=== PATIENT | male | born 1955 | race Hispanic/Latino ===

== ENCOUNTER 2018-07-09 11:38 | Emergency (ER) | payer OTHER ==
--- NOTE | 2018-07-09 14:33 | ER ---
Nurse's Notes [facility] Name: Jose Xie Age: 63 yrs Sex: Male : 1955 Arrival Date: 07/09/2018 Time: 11:39 Bed Waiting Private MD: Diagnosis: Presentation: 07/09 11:46 Presenting complaint: Patient states: cough, nasal congestion that began 5-6 days ago. aa5 Pt states "I think it's my sinuses". Pt also c/o sore throat and body aches. Pt states "I've been taking penicillin for the last 5 days and not working". Transition of care: patient was not received from another setting of care. Onset of symptoms was June 2018. Risk Assessment: Do you want to hurt yourself or someone else? Patient reports no desire to harm self or others. Care prior to arrival: None. 11:46 Method Of Arrival: Wheelchair aa5 11:46 Acuity: CY 3 aa5 13:13 Note Pt states "I just took some tramadol a little bit ago but my eyes hurt and are aa5 burning". Historical: - Allergies: 11:47 INFLUENZA VIRUS VACCINES; aa5 - PMHx: 11:47 Diabetes - NIDDM; Hyperlipidemia; Hypertension; Rheumatoid Arthritis; aa5 - PSHx: 11:47 back surgery; right wrist surgery; left foot surgery; aa5 - Immunization history:: Flu vaccine is not up to date. - Social history:: Smoking status: Patient uses tobacco products, denies chronic smoking, but will smoke occasionally. - Ebola Screening: : No symptoms or risks identified at this time. Assessment: 13:15 Reassessment: Patient is alert, oriented x 3, equal unlabored respirations, skin aa5 warm/dry/pink. Pt updated on wait time for ER room assignment, pt verbalized understanding. . Vital Signs: 11:47 BP 149 / 79; Pulse 95; Resp 20 S; Temp 100.0(O); Pulse Ox 96% on R/A; Weight 113.4 kg aa5 (R); Height 5 ft. 9 in. (175.26 cm) (R); Pain 10/10; 13:15 BP 157 / 86; Pulse 88; Resp 18 S; Temp 99.1(O); Pulse Ox 97% on R/A; aa5 11:47 Body Mass Index 36.92 (113.40 kg, 175.26 cm) aa5 ED Course: 11:39 Patient arrived in ED. as 11:46 Arm band placed on. aa5 11:47 Triage completed. aa5 13:52 Patient's name was called from ER lobby. No response. ss 13:53 [facility] Gay[facility]C [facility]. kb 13:53 Jeremie Bravo MD is Attending Physician. kb 14:05 Patient's name was called from ER lobby. No response. aa5 14:30 Patient's name was called from ER lobby. No response. aa5 14:32 Kojo Machado MD is Attending Physician. aa5 Administered Medications: No medications were administered Outcome: 14:30 Patient left the ED. aa5 14:30 Eloped from waiting room. aa5 Signatures: Eliana Gayle FNP-C FNP-Ame Parker Audri, RN RN aa5 Jade Esquivel RN RN ss Corrections: (The following items were deleted from the chart) 11:49 11:46 Presenting complaint: Patient states: cough, nasal congestion that began 5-6 days aa5 ago. Pt states "I think it's my sinuses" aa5 13:16 13:15 Pulse 88bpm; Resp 18bpm; Spontaneous; Pulse Ox 97% RA; Temp 99.1F Oral; aa5 aa5 14:33 14:32 Patient left the ED. aa5 aa5
== END 2018-07-09 14:32 | disposition left against medical advice (07) ==
LOC: ER 11:38
DX: Z53.21 Procedure and treatment not carried out due to patient leaving prior to being seen by health care provider (principal); I10 Essential (primary) hypertension; Z72.0 Tobacco use; Z88.7 Allergy status to serum and vaccine

== ENCOUNTER 2018-07-10 04:47 | Emergency (ER) | payer OTHER ==
[2018-07-10] MEDS ORDERED: IBUPROFEN 400 MG TAB ONE (06:22)
[2018-07-10] MEDS ORDERED: HYDROCODONE/CHLORPHEN 5 ML/OSYR ONE (06:22)
--- NOTE | 2018-07-10 07:36 | ER ---
Nurse's Notes [facility] Name: Jose Xie Age: 63 yrs Sex: Male : 1955 Arrival Date: 07/10/2018 Time: 04:52 Bed 19 Private MD: Kike Miranda E Diagnosis: Pneumonia, unspecified organism Presentation: 07/10 05:01 Presenting complaint: Patient states: he has been really sick for 5 days with a cough, bb runny nose, stuffy nose, headache, fever, back and muscle pain. He tried some left over penicillin for 2 days but it did not help. Transition of care: patient was not received from another setting of care. Onset of symptoms was July 05, 2018. Risk Assessment: Do you want to hurt yourself or someone else? Patient reports no desire to harm self or others. Initial Sepsis Screen: Does the patient meet any 2 criteria? No. Patient's initial sepsis screen is negative. Does the patient have a suspected source of infection? No. Patient's initial sepsis screen is negative. Care prior to arrival: None. 05:01 Method Of Arrival: Ambulatory bb 05:01 Acuity: CY 3 bb Triage Assessment: 05:08 General: Appears in no apparent distress. uncomfortable, Behavior is calm, cooperative, cc3 appropriate for age. Pain: Complains of pain in headache, back Quality of pain is described as aching. EENT: Reports nasal congestion since 5 days flu-like symptoms. Neuro: Level of Consciousness is awake, alert, obeys commands, Oriented to person, place, time, situation, Appropriate for age. Cardiovascular: Patient's skin is warm and dry. Respiratory: Airway is patent Respiratory effort is even, unlabored, Respiratory pattern is regular, symmetrical. GI: Abdomen is round obese. : No signs and/or symptoms were reported regarding the genitourinary system. Derm: No signs and/or symptoms reported regarding the dermatologic system. Musculoskeletal: Circulation, motion, and sensation intact. Range of motion: intact in all extremities. Historical: - Allergies: 05:14 INFLUENZA VIRUS VACCINES; bb - Home Meds: 05:14 unable to obtain [Active]; bb - PMHx: 05:14 Diabetes - NIDDM; Hyperlipidemia; Hypertension; Rheumatoid Arthritis; bb - PSHx: 05:14 back surgery; right wrist surgery; left foot surgery; bb - Immunization history:: Adult Immunizations unknown. - Social history:: Smoking status: Patient uses tobacco products, denies chronic smoking, but will smoke occasionally, Patient uses alcohol, occasionally. Patient/guardian denies using street drugs. - Ebola Screening: : No symptoms or risks identified at this time No symptoms or risks identified at this time. Screenin:08 Abuse screen: Denies threats or abuse. Denies injuries from another. Nutritional cc3 screening: No deficits noted. Tuberculosis screening: No symptoms or risk factors identified. Fall Risk Ambulatory Aid- Crutches/Cane/Walker (15 pts). Gait- Weak (10 pts.). Mental Status- Oriented to own ability (0 pts). Assessment: 05:20 Reassessment: Patient appears in no apparent distress at this time. Patient and/or cc3 family updated on plan of care and expected duration. Pain level reassessed. Patient is alert, oriented x 3, equal unlabored respirations, skin warm/dry/pink. Patient in a hurry to see a physician, Dr. Francisco informed. 06:00 Reassessment: Patient appears in no apparent distress at this time. Patient and/or cc3 family updated on plan of care and expected duration. Pain level reassessed. Patient is alert, oriented x 3, equal unlabored respirations, skin warm/dry/pink. still hasn't signed up for the patient, patient seen by LOUANN Diaz. 06:50 Reassessment: Patient appears in no apparent distress at this time. Patient and/or cc3 family updated on plan of care and expected duration. Pain level reassessed. Patient is alert, oriented x 3, equal unlabored respirations, skin warm/dry/pink. Patient taken by echo technician to xray department. 07:00 Reassessment: RECD REPORT FROM ELDA CARDENAS. 63YO HM P/W FLU-LIKE S/S. ALL CURRENT bp ORDERS COMPLETED, RESULTS PENDING. 07:35 Reassessment: D/C ON HOLD FOR SHOT TIME. bp 07:56 Reassessment: PT D/C HOME AMBULATORY WITH FAMILY, DX WITH PNEUMONIA. bp Vital Signs: 05:14 BP 177 / 83; Pulse 87; Resp 18 S; Temp 98.4(O); Pulse Ox 98% on R/A; Weight 113.4 kg bb (R); Height 5 ft. 9 in. (175.26 cm) (R); Pain 9/10; 06:19 BP 139 / 83; Pulse 74; Resp 19 S; Pulse Ox 96% on R/A; cc3 07:45 BP 123 / 59; Pulse 70; Resp 18; Pulse Ox 96% ; mh5 05:14 Body Mass Index 36.92 (113.40 kg, 175.26 cm) ED Course: 04:52 Patient arrived in ED. es 04:53 Kike Miranda MD is Private Physician. es 05:03 Triage completed. bb 05:08 Elda Dexter is Primary Nurse. cc3 05:08 Arm band placed on right wrist. Patient notified of wait time. cc3 05:08 Patient has correct armband on for positive identification. Bed in low position. Call cc3 light in reach. Side rails up X 1. Pulse ox on. NIBP on. 06:01 Emily De La Cruz FNP-C is PSYCHIATRICP. snw 06:01 Jovan Francisco MD is Attending Physician. snw 07:00 Patient moved to radiology via wheelchair. jb2 07:00 Report given to RONALD Franco. cc3 07:04 X-ray completed. Patient tolerated procedure well. jb2 07:06 Patient moved back from radiology. jb2 07:08 Chest Pa And Lat (2 Views) XRAY In Process Unspecified. EDMS 07:08 Salvador Dominguez RN is Primary Nurse. bp 07:34 Kike Miranda MD is Referral Physician. snw 07:56 No provider procedures requiring assistance completed. Patient did not have IV access bp during this emergency room visit. Administered Medications: 06:12 Drug: Tussionex Pennkinetic ER 5 ml Route: PO; lp1 07:10 Follow up: Response: Marked relief of symptoms bp 06:12 Drug: Motrin 400 mg Route: PO; lp1 07:10 Follow up: Response: No adverse reaction bp 07:35 Drug: Rocephin (cefTRIAXone) 1 grams Route: IM; Site: left gluteus; bp 07:57 Follow up: Response: No adverse reaction bp Outcome: 07:35 Discharge ordered by . snw 07:56 Discharged to home ambulatory, with family. bp 07:56 Condition: stable 07:56 Discharge instructions given to patient, Instructed on discharge instructions, follow up and referral plans. medication usage, Demonstrated understanding of instructions, follow-up care, medications, Prescriptions given X 4. 07:58 Patient left the ED. bp Signatures: Dispatcher [employer] EDMS Emily De La Cruz, RENITA-C [employer]-Csnw Oliva Curtis Jesse jb2 Chuyita Grimm, RN RN bb Ariane Terry, RONALD RN 1 Julienne Ervin [facility] Salvador Dominguez RN RN bp Elda Dexter cc3 Corrections: (The following items were deleted from the chart) 06:21 05:30 Reassessment: Patient appears in no apparent distress at this time. Patient cc3 and/or family updated on plan of care and expected duration. Pain level reassessed. Patient is alert, oriented x 3, equal unlabored respirations, skin warm/dry/pink. Patient in a hurry to see a physician, Dr. Francisco informed. cc3 06:22 06:00 Reassessment: Patient appears in no apparent distress at this time. Patient cc3 and/or family updated on plan of care and expected duration. Pain level reassessed. Patient is alert, oriented x 3, equal unlabored respirations, skin warm/dry/pink. Patient seen by LOUANN Diaz. cc3
--- NOTE | 2018-07-10 07:36 | EDPHYS ---
Physician Documentation [facility] Name: Jose Xie Age: 63 yrs Sex: Male : 1955 Arrival Date: 07/10/2018 Time: 04:52 Bed 19 Private MD: Kike Miranda E ED Physician Jovan Francisco HPI: 07/10 07:33 This 63 yrs old Male presents to ER via Ambulatory with complaints of Flu snw Symptoms, Congestion, Fever, Headache. 07:33 Onset: The symptoms/episode began/occurred 5 day(s) ago, and became persistent. snw Associated signs and symptoms: Pertinent positives: congestion, cough, diarrhea, fever, shortness of breath, sore throat, vomiting. The patient has experienced a previous episode. The patient has not recently seen a physician. Historical: - Allergies: 05:14 INFLUENZA VIRUS VACCINES; bb - Home Meds: 05:14 unable to obtain [Active]; bb - PMHx: 05:14 Diabetes - NIDDM; Hyperlipidemia; Hypertension; Rheumatoid Arthritis; bb - PSHx: 05:14 back surgery; right wrist surgery; left foot surgery; bb - Immunization history:: Adult Immunizations unknown. - Social history:: Smoking status: Patient uses tobacco products, denies chronic smoking, but will smoke occasionally, Patient uses alcohol, occasionally. Patient/guardian denies using street drugs. - Ebola Screening: : No symptoms or risks identified at this time No symptoms or risks identified at this time. ROS: 06:25 Constitutional: Positive for fever, chills, no weight loss, Eyes: Negative for injury, snw pain, redness, and discharge, ENT: Negative for injury, pain, and discharge, Neck: Negative for injury, pain, and swelling, Cardiovascular: Negative for chest pain, palpitations, and edema, Abdomen/GI: Positive for nausea, vomiting, diarrhea, negative for abdominal pain Back: Negative for injury and pain, : Negative for injury, bleeding, discharge, and swelling, MS/Extremity: Negative for injury and deformity, + pain all over Skin: Negative for injury, rash, and discoloration, Neuro: Negative for headache, weakness, numbness, tingling, and seizure. 06:25 Respiratory: Positive for cough, orthopnea. Exam: 06:23 Head/Face: Normocephalic, atraumatic. Eyes: Pupils equal round and reactive to light, snw extra-ocular motions intact. Lids and lashes normal. Conjunctiva and sclera are non-icteric and not injected. Cornea within normal limits. Periorbital areas with no swelling, redness, or edema. 06:23 Neck: Trachea midline, no thyromegaly or masses palpated, and no cervical lymphadenopathy. Supple, full range of motion without nuchal rigidity, or vertebral point tenderness. No Meningismus. Chest/axilla: Normal chest wall appearance and motion. Nontender with no deformity. No lesions are appreciated. 06:23 Abdomen/GI: Soft, non-tender, with normal bowel sounds. No distension or tympany. No guarding or rebound. No evidence of tenderness throughout. Back: No spinal tenderness. No costovertebral tenderness. Full range of motion. Skin: Warm, dry with normal turgor. Normal color with no rashes, no lesions, and no evidence of cellulitis. MS/ Extremity: Pulses equal, no cyanosis. Neurovascular intact. Full, normal range of motion. Neuro: Awake and alert, GCS 15, oriented to person, place, time, and situation. Cranial nerves II-XII grossly intact. Motor strength 5/5 in all extremities. Sensory grossly intact. Cerebellar exam normal. Normal gait. 06:23 Constitutional: The patient appears alert, awake, anxious, restless, uncomfortable. 06:23 ENT: External ear(s): are unremarkable, Ear canal(s): are normal, TM's: are normal, Nose: Nasal mucosa: edematous, Mouth: is normal, Posterior pharynx: swelling, that is mild, erythema, that is mild, Dental exam: normal, Voice: is hoarse. 06:23 Cardiovascular: Rate: normal, Rhythm: regular, Pulses: no pulse deficits are appreciated, Heart sounds: murmur, Edema: is not appreciated. 06:23 Respiratory: the patient does not display signs of respiratory distress, Respirations: shallow respirations, Breath sounds: bronchial sounds, bronchitic cough. Vital Signs: 05:14 BP 177 / 83; Pulse 87; Resp 18 S; Temp 98.4(O); Pulse Ox 98% on R/A; Weight 113.4 kg bb (R); Height 5 ft. 9 in. (175.26 cm) (R); Pain 9/10; 06:19 BP 139 / 83; Pulse 74; Resp 19 S; Pulse Ox 96% on R/A; cc3 07:45 BP 123 / 59; Pulse 70; Resp 18; Pulse Ox 96% ; mh5 05:14 Body Mass Index 36.92 (113.40 kg, 175.26 cm) bb MDM: 06:04 Patient medically screened. snw 07:58 Data reviewed: vital signs, nurses notes. Data interpreted: Pulse oximetry: on room air snw is 96 %. Interpretation: acceptable. Counseling: I had a detailed discussion with the patient and/or guardian regarding: the historical points, exam findings, and any diagnostic results supporting the discharge/admit diagnosis, lab results, radiology results, the need for outpatient follow up, for definitive care, to return to the emergency department if symptoms worsen or persist or if there are any questions or concerns that arise at home. Response to treatment: the patient's symptoms have markedly improved after treatment. Special discussion: Based on the history and exam findings, there is no indication for further emergent testing or inpatient evaluation. I discussed with the patient/guardian the need to see the primary care provider for further evaluation of the symptoms. 07/10 05:28 Order name: Flu; Complete Time: 06:22 cc3 07/10 06:02 Order name: Chest Pa And Lat (2 Views) XRAY snw Administered Medications: 06:12 Drug: Tussionex Pennkinetic ER 5 ml Route: PO; lp1 07:10 Follow up: Response: Marked relief of symptoms bp 06:12 Drug: Motrin 400 mg Route: PO; lp1 07:10 Follow up: Response: No adverse reaction bp 07:35 Drug: Rocephin (cefTRIAXone) 1 grams Route: IM; Site: left gluteus; bp 07:57 Follow up: Response: No adverse reaction bp Disposition: 07/10/18 07:35 Discharged to Home. Impression: Pneumonia, unspecified organism. - Condition is Stable. - Discharge Instructions: Fever, Adult, Community-Acquired Pneumonia, Adult. - Prescriptions for Levaquin 500 mg Oral Tablet - take 1 tablet by ORAL route once daily for 10 days; 10 tablet. Tylenol- Codeine #3 300-30 mg Oral Tablet - take 2 tablets by ORAL route every 6 hours As needed; 16 tablet. Albuterol Sulfate 90 mcg/actuation - inhale 1-2 puff by INHALATION route every 4-6 hours; 1 Inhaler. Zyrtec 10 mg Oral Tablet - take 1 tablet by ORAL route once daily As needed; 20 tablet. - Medication Reconciliation Form, Thank You Letter, Antibiotic Education, Prescription Opioid Use form. - Follow up: Kike Miranda MD; When: 2 - 3 days; Reason: Recheck today's complaints, Continuance of care, Re-evaluation by your physician. Follow up: Emergency Department; When: As needed; Reason: Worsening of condition. Signatures: Dispatcher [employer] EDMS Emily De La Cruz, PRETZEL PACKER-C PRETZ[employer] PACKER-Csnw Chuyita Grimm, RN RN bb Ariane Terry, RN RN lp1 Salvador Dominguez RN RN bp Elda Dexter cc3 Corrections: (The following items were deleted from the chart) 07:58 07:35 07/10/2018 07:35 Discharged to Home. Impression: Pneumonia, unspecified organism. bp Condition is Stable. Forms are Medication Reconciliation Form, Thank You Letter, Antibiotic Education, Prescription Opioid Use. Follow up: Kike Miranda; When: 2 - 3 days; Reason: Recheck today's complaints, Continuance of care, Re-evaluation by your physician. Follow up: Emergency Department; When: As needed; Reason: Worsening of condition. snw
[2018-07-10] MEDS ORDERED: CEFTRIAXONE 1000 MG/VIAL ONE (07:58)
[2018-07-10] MEDS ORDERED: LIDOCAINE 2% MPF 5 ML VIAL ONE (07:59)
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
== END 2018-07-10 07:58 | disposition home or self-care (01) ==
LOC: ER 04:47
DX: J18.9 Pneumonia, unspecified organism (principal); I10 Essential (primary) hypertension; Z72.0 Tobacco use; Z88.7 Allergy status to serum and vaccine
CPT/HCPCS: 71046; 87804; 96372; 99284

== ENCOUNTER 2021-02-16 06:28 | Emergency (ER) | payer OTHER ==
[2021-02-16 07:14] LABS: Absolute Lymphocytes (CBC) 2.5 K/uL (0.7-4.9); Basophils % 0.9 % (0-1.3); Lymphocytes % 22.1 % (15.3-44.8); RBC Red Blood Cell Count 4.84 M/uL (4.33-5.43)
[2021-02-16] MEDS ORDERED: ONDANSETRON 4 MG/2 ML VIAL ONE (07:16)
[2021-02-16] MEDS ORDERED: MORPHINE 4 MG/ML SYR ONE (07:17)
[2021-02-16] MEDS ORDERED: FAMOTIDINE 20 MG/2 ML VIAL IV ONE (07:25)
[2021-02-16 07:31] LABS: Albumin 3.4 g/dL (3.4-5.0); Bilirubin Direct 0.1 mg/dL (0-0.2); Bilirubin Total 0.4 mg/dL (0.2-1.0); Potassium 3.9 mmol/L (3.5-5.1); Protein, Total 7.7 g/dL (6.4-8.2)
[2021-02-16] MEDS ORDERED: NA CHLORIDE 0.9% 1,000 ML ONE (07:44)
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
[2021-02-16] MEDS ORDERED: MAGNES/ALUMIN/SIMET 30ML UCUP ONE (09:23)
[2021-02-16] MEDS ORDERED: LIDOCAINE VISCOUS 2% SOLN 15 ML UDC ONE (09:23)
--- NOTE | 2021-02-16 10:14 | EDPHYS ---
Physician Documentation [facility] Name: Jose Xie Age: 66 yrs Sex: Male : 1955 Arrival Date: 02/16/2021 Time: 06:31 Bed 16 Private MD: ED Physician Antelmo Johnston HPI: 02/16 07:10 This 66 yrs old Male presents to ER via Ambulatory with complaints of jmm Abdominal Pain, Abdominal Burn. 07:10 The patient presents with abdominal pain. Onset: The symptoms/episode began/occurred jmm last night. The symptoms do not radiate. Associated signs and symptoms: Pertinent negatives: diarrhea, vomiting. The symptoms are described as achy, burning. The patient has experienced similar episodes in the past. Historical: - PMHx: 07:57 Diabetes mellitus; Hypertensive disorder; Ulcer; jg9 - Immunization history:: Client reports receiving the Moiz \T\ Moiz single-dose vaccine. Pneumococcal vaccine is not up to date, Flu vaccine is not up to date. - Social history:: Smoking status: Patient reports the use of cigarette tobacco products, denies chronic smoking, but will smoke occasionally. ROS: 07:10 Constitutional: Negative for fever, chills, and weight loss, Cardiovascular: Negative jmm for chest pain, palpitations, and edema, Respiratory: Negative for shortness of breath, cough, wheezing, and pleuritic chest pain. 07:10 Abdomen/GI: Positive for abdominal pain. 07:10 All other systems are negative. Exam: 07:10 Constitutional: This is a well developed, well nourished patient who is awake, alert, jmm and in no acute distress. Head/Face: atraumatic. Eyes: EOMI, no conjunctival erythema appreciated ENT: Moist Mucus Membranes Neck: Trachea midline, Supple Chest/axilla: Normal chest wall appearance and motion. Cardiovascular: Regular rate and rhythm. No edema appreciated Respiratory: Normal respirations, no respiratory distress appreciated 07:10 Skin: General appearance color normal MS/ Extremity: Moves all extremities, no obvious deformities appreciated, no edema noted to the lower extremities Neuro: Awake and alert, normal gait Psych: Behavior is normal, Mood is normal, Patient is cooperative and pleasant 07:10 Abdomen/GI: Inspection: abdomen appears normal, Bowel sounds: normal, Palpation: soft, moderate abdominal tenderness, in the epigastric area. Vital Signs: 06:38 BP 155 / 73; Pulse 80; Resp 20; Temp 97.7; Pulse Ox 97% on R/A; Weight 109.77 kg; da3 Height 5 ft. 10 in. (177.80 cm); 07:15 BP 139 / 67; Pulse 47; Resp 18 S; Pulse Ox 95% on R/A; jg9 07:45 BP 142 / 78; Pulse 77; Resp 16; Pulse Ox 96% on R/A; jg9 08:35 BP 158 / 83; Pulse 73; Resp 18 S; Pulse Ox 97% on R/A; jg9 09:30 BP 160 / 78; Pulse 75; Resp 17 S; Pulse Ox 97% on R/A; jg9 06:38 Body Mass Index 34.72 (109.77 kg, 177.80 cm) da3 MDM: 07:04 Patient medically screened. terrell 10:10 Data reviewed: vital signs, nurses notes. Counseling: I had a detailed discussion with terrell the patient and/or guardian regarding: the historical points, exam findings, and any diagnostic results supporting the discharge/admit diagnosis, lab results, the need for outpatient follow up, to return to the emergency department if symptoms worsen or persist or if there are any questions or concerns that arise at home. ED course: Patient is alert nontoxic in appearance in the ED. States feeling much better. CT did not reveal an acute process. Most likely gastritis based on physical exam findings. Patient will be prescribed suckle fate and advised follow-up gastroenterology. Patient otherwise given strict return precautions. Patient understood and agrees plan of care.. 12 07:05 Order name: Basic Metabolic Panel; Complete Time: 07:32 [facility] 12 07:05 Order name: CBC with Diff; Complete Time: 07:18 [facility] 12 07:05 Order name: Hepatic Function; Complete Time: 07:32 [facility] 12 07:05 Order name: Lipase; Complete Time: 07:32 [facility] 12 07:05 Order name: CT Abd/Pelvis - IV Contrast Only; Complete Time: 08:24 [facility] 12 07:05 Order name: IV Saline Lock; Complete Time: 07:09 [facility] 12 07:05 Order name: Labs collected and sent; Complete Time: 07:09 [facility] Administered Medications: 07:20 Drug: Zofran (Ondansetron) 4 mg Route: IVP; Site: left antecubital; jg9 07:42 Follow up: Response: No adverse reaction; Nausea is decreased jg9 07:23 Drug: morphine 4 mg Route: IVP; Site: left antecubital; jg9 07:42 Follow up: Response: No adverse reaction; Pain is decreased jg9 08:00 Follow up: Response: Pain is decreased; RASS: Alert and Calm (0) jg9 07:26 Drug: Pepcid (famotidine) 20 mg Route: IVP; Site: left antecubital; jg9 07:42 Follow up: Response: No adverse reaction; Pain is decreased jg9 08:00 Follow up: Response: No adverse reaction; Marked relief of symptoms jg9 07:50 Drug: NS 0.9% 1000 ml Route: IV; Rate: 1 bolus; Site: left antecubital; jg9 09:27 Follow up: IV Status: Completed infusion; IV Intake: 1000ml j9 09:27 Drug: GI Cocktail without - (Maalox Suspension 30 ml, Lidocaine Liquid 2 % 15 jg9 ml) Route: PO; 09:45 Follow up: Response: Pain is decreased jg9 Disposition Summary: 02/16/21 10:13 Discharge Ordered Location: Home [facility] Condition: Stable [facility] Diagnosis - Abdominal pain, unspecified [facility] Followup: [facility] - With: Kike Perez MD - When: 2 - 3 days - Reason: Recheck today's complaints, Continuance of care, Re-evaluation by your physician Discharge Instructions: - Discharge Summary Sheet [facility] - Abdominal Pain, Adult [facility] Forms: - Medication Reconciliation Form [facility] - Thank You Letter [facility] - Antibiotic Education [facility] - Prescription Opioid Use [facility] Prescriptions: - Carafate 100 mg/mL Oral suspension - take 10 milliliter by ORAL route 4 times per day; 200 milliliter; Refills: 0, [facility] Product Selection Permitted Signatures: Dispatcher [employer] EDHay Doan PA PA jmm Allan, David RN RN da3 Yasemin Bose jg9 Corrections: (The following items were deleted from the chart) 06:43 06:42 PMHx: Diabetes - NIDDM; da3 da3 06:43 06:42 PMHx: Hypertension; da3 da3 06:43 06:42 PMHx: Hyperlipidemia; da3 da3 06:43 06:42 PMHx: Rheumatoid Arthritis; da3 da3 10:20 07:05 Urine Dipstick-Ancillary ordered. terrell jg9
--- NOTE | 2021-02-16 10:14 | ER ---
Nurse's Notes [facility] Name: Jose Xie Age: 66 yrs Sex: Male : 1955 Arrival Date: 02/16/2021 Time: 06:31 Bed 16 Private MD: Diagnosis: Abdominal pain, unspecified Presentation: 02/16 06:38 Chief complaint: Patient states: abd pain since Monday denies N/V/D. Coronavirus da3 screen: Vaccine status: Patient reports receiving the 1st dose of the Covid vaccine. Ebola Screen: No symptoms or risks identified at this time. Initial Sepsis Screen: Does the patient meet any 2 criteria? Does the patient have a suspected source of infection? No. Patient's initial sepsis screen is negative. Risk Assessment: Do you want to hurt yourself or someone else? Patient reports no desire to harm self or others. 06:38 Method Of Arrival: Ambulatory da3 06:38 Acuity: CY 3 da3 07:15 Onset of symptoms was February 06, 2021. jg9 Triage Assessment: 06:43 General: Appears in no apparent distress. uncomfortable, Behavior is calm, cooperative, da3 appropriate for age. 06:43 Pain: Complains of pain in center of 4 quads since monday Pain currently is 10 out of da3 10 on a pain scale. Historical: - PMHx: 07:57 Diabetes mellitus; Hypertensive disorder; Ulcer; jg9 - Immunization history:: Client reports receiving the Moiz \\T\\ Moiz single-dose vaccine. Pneumococcal vaccine is not up to date, Flu vaccine is not up to date. - Social history:: Smoking status: Patient reports the use of cigarette tobacco products, denies chronic smoking, but will smoke occasionally. Screenin:15 Abuse screen: Denies threats or abuse. Nutritional screening: No deficits noted. jg9 Tuberculosis screening: No symptoms or risk factors identified. Fall Risk None identified. Assessment: 07:10 General: Appears uncomfortable, Behavior is calm, cooperative, appropriate for age. jg9 Pain: Complains of pain in abdomen Pain does not radiate. Pain currently is 10 out of 10 on a pain scale. Quality of pain is described as burning, aching, Pain began 2-3 days ago. Is continuous, Alleviated by medications, rest, Aggravated by increased activity, Noted to be grimacing, Also complains of nausea, Current management Goal of pain control is to. Neuro: Reports. Neuro: No deficits noted. Cardiovascular: No deficits noted. Rhythm is sinus bradycardia. Respiratory: No deficits noted. GI: Bowel sounds present X 4 quads. Abd is soft Abdomen is tender to palpation Guarding noted Reports upper abdominal pain, nausea, normal bowel habits, Patient currently denies Parent/caregiver reports the patient having Patient reports that he drank Tequila on 02/06/21 and since has been experiencing abdominal pain. Patient has been treating with "milk" and "orange juice" which he reports did help. Patient reports hx of ulcers. 07:57 Reassessment: Patient states feeling better. Patient states symptoms have improved. jg9 08:15 Reassessment: Patient and/or family updated on plan of care and expected duration. Pain jg9 level reassessed. Patient advised that a urine sample is ordered, he reported that he does not have to go right now. 09:15 Pain: Complains of pain in abdomen. jg9 09:55 Reassessment: Patient feeling better and wants to leave, patient refusing to provide jg9 urine specimen. Vital Signs: 06:38 BP 155 / 73; Pulse 80; Resp 20; Temp 97.7; Pulse Ox 97% on R/A; Weight 109.77 kg; da3 Height 5 ft. 10 in. (177.80 cm); 07:15 BP 139 / 67; Pulse 47; Resp 18 S; Pulse Ox 95% on R/A; jg9 07:45 BP 142 / 78; Pulse 77; Resp 16; Pulse Ox 96% on R/A; jg9 08:35 BP 158 / 83; Pulse 73; Resp 18 S; Pulse Ox 97% on R/A; jg9 09:30 BP 160 / 78; Pulse 75; Resp 17 S; Pulse Ox 97% on R/A; jg9 06:38 Body Mass Index 34.72 (109.77 kg, 177.80 cm) da3 ED Course: 06:31 Patient arrived in ED. bp1 06:42 Triage completed. 3 06:50 Hay Mosqueda PA is PHCP. [facility] 06:50 Antelmo Johnston MD is Attending Physician. [facility] 07:03 Inserted saline lock: 18 gauge in left antecubital area, using aseptic technique. Blood ds4 collected. 07:15 Arm band placed on right wrist. jg9 07:15 Patient has correct armband on for positive identification. Bed in low position. Call jg9 light in reach. 07:53 No apparent distress. Patient eating orange, this nurse advised that he does not eat or jg9 drink anything else until all testing is completed. Awaiting lab results. Pt visited by . 08:06 CT Abd/Pelvis - IV Contrast Only In Process Unspecified. EDMS 09:15 Patient requests pain medication. jg9 09:19 Yasemin Bose is Primary Nurse. jg9 10:13 Kike Perez MD is Referral Physician. m 10:20 No provider procedures requiring assistance completed. jg9 10:20 IV discontinued. jg9 Administered Medications: 07:20 Drug: Zofran (Ondansetron) 4 mg Route: IVP; Site: left antecubital; jg9 07:42 Follow up: Response: No adverse reaction; Nausea is decreased jg9 07:23 Drug: morphine 4 mg Route: IVP; Site: left antecubital; jg9 07:42 Follow up: Response: No adverse reaction; Pain is decreased jg9 08:00 Follow up: Response: Pain is decreased; RASS: Alert and Calm (0) jg9 07:26 Drug: Pepcid (famotidine) 20 mg Route: IVP; Site: left antecubital; jg9 07:42 Follow up: Response: No adverse reaction; Pain is decreased jg9 08:00 Follow up: Response: No adverse reaction; Marked relief of symptoms jg9 07:50 Drug: NS 0.9% 1000 ml Route: IV; Rate: 1 bolus; Site: left antecubital; jg9 09:27 Follow up: IV Status: Completed infusion; IV Intake: 1000ml jg9 09:27 Drug: GI Cocktail without - (Maalox Suspension 30 ml, Lidocaine Liquid 2 % 15 jg9 ml) Route: PO; 09:45 Follow up: Response: Pain is decreased jg9 Intake: 09:27 IV: 1000ml; Total: 1000ml. jg9 Outcome: 10:13 Discharge ordered by . jmm 10:20 Discharged to home ambulatory, with significant other. jg9 10:20 Condition: stable 10:20 Discharge instructions given to patient, Instructed on discharge instructions, follow up and referral plans. Demonstrated understanding of instructions, follow-up care, medications, Prescriptions given X 1. 10:21 Patient left the ED. jg9 Signatures: Dispatcher [employer] EDMS Hay Mosqueda PA PA jmm Swanson, Donovan ds4 Katherine Echeverria David, RN RN da3 Yasemin Bose jg9 Corrections: (The following items were deleted from the chart) 06:43 06:42 PMHx: Diabetes - NIDDM; da3 da3 06:43 06:42 PMHx: Hypertension; da3 da3 06:43 06:42 PMHx: Hyperlipidemia; da3 da3 06:43 06:42 PMHx: Rheumatoid Arthritis; da3 da3
[2021-02-16 10:28] VITALS: TEMP 97.7
[2021-02-16 10:32] VITALS: O2SAT 97
[2021-02-16 10:34] VITALS: BP 160/78
== END 2021-02-16 10:21 | disposition home or self-care (01) ==
LOC: ER 06:28
DX: R10.13 Epigastric pain (principal); I10 Essential (primary) hypertension; Z72.0 Tobacco use
CPT/HCPCS: 96361; 85025; 80048; 36415; 80076; 83690; 74177; 96375; 96374; 99284; Q9967; J7030; J2405

== ENCOUNTER 2021-06-20 08:14 | Emergency (ER) | payer MEDICARE, OTHER ==
--- OUTSIDE RECORDS SUMMARY | 2021-06-20 08:33 | XMS REPORT | Continuity of Care Document ---
:1955 Author Organization [facility] t Address [address] [place] [address] [place] [id number] Care Team Providers Name Role Phone Unavailable Unavailable Unavailable Payers Payer Name Policy Type Policy Number Effective Date Expiration Date S kristy [facility] [id number] 2021 (MEDICARE 00:00:00 REPLACEMENT HMO) Problems This patient has no known problems. Allergies, Adverse Reactions, Alerts This patient has no known allergies or adverse reactions. Medications This patient has no known medications. Procedures This patient has no known procedures. Encounters Start End Encounter Admission Attending Care Care Encounter Source Date/Time Date/Time Type Type Clinicians Facility Department ID 2021-04-13 2021-04-13 Outpatient [facility] [id number] [facility] 12:01:00 12:01:00 [facility] Results This patient has no known results.
[2021-06-20] MEDS ORDERED: HYDROCODONE/CHLORPHEN 5 ML/OSYR ONE (09:09)
[2021-06-20] MEDS ORDERED: IBUPROFEN 400 MG TAB ONE (09:09)
[2021-06-20] MEDS ORDERED: LEVALBUTEROL 1.25 MG/3 ML NEB ONE (09:09)
--- NOTE | 2021-06-20 09:42 | RAD REPORT ---
EXAM DESCRIPTION: RAD - Chest Single View - 06/20/2021 9:10 am CLINICAL HISTORY: cough, sob, chills COMPARISON: Chest Pa And Lat (2 Views) dated 07/10/2018; CHEST PA AND LAT 2 VIEW dated 03/29/2015 FINDINGS: Lines: None. Lungs: Mild ill-defined bilateral airspace disease . Pleural: No significant pleural effusions or pneumothorax. Cardiac: The heart size is within normal limits. Bones: No acute fractures. Other: Shrapnel overlies the left hemithorax. IMPRESSION: Mild ill-defined bilateral opacities could represent a mild multifocal pneumonia.
[2021-06-20 10:22] LABS: SARS-COV-2 RT PCR NEGATIVE (NEGATIVE)
--- NOTE | 2021-06-20 10:35 | ER ---
Nurse's Notes [facility] Name: Jose Xie Age: 66 yrs Sex: Male : 1955 Arrival Date: 06/20/2021 Time: 08:17 Bed 19 Private MD: Diagnosis: Pneumonia Presentation: 06/20 08:33 Chief complaint: Patient states: Cough, sore throat, body aches, fatigue for 2 days. No ll1 fever. Coronavirus screen: Vaccine status: Patient reports receiving the 1st dose of the Covid vaccine. Client denies travel out of the [place] in the last 14 days. congestion, cough unrelated to allergies, difficulty breathing, fatigue, headache, sore throat, Client presents with at least one sign or symptom that may indicate coronavirus-19. Standard/surgical mask placed on the client. Ebola Screen: Patient denies travel to an Ebola-affected area in the 21 days before illness onset. Initial Sepsis Screen: Does the patient meet any 2 criteria? HR > 90 bpm. No. Patient's initial sepsis screen is negative. Does the patient have a suspected source of infection? Yes: Productive cough/pneumonia. Risk Assessment: Do you want to hurt yourself or someone else? Patient reports no desire to harm self or others. Onset of symptoms was June 19, 2021. 08:33 Method Of Arrival: Ambulatory ll1 08:33 Acuity: CY 3 ll1 Triage Assessment: 08:34 General: Appears ill, Behavior is calm, cooperative, appropriate for age, agitated. ll1 Pain: Complains of pain in trunk Quality of pain is described as aching, Aggravated by cough. EENT: Reports nasal congestion. Respiratory: Reports cough that is pain with cough. Historical: - Allergies: 08:32 No Known Allergies; ll1 - PMHx: 08:32 diabetes mellitus; Hypertensive disorder; ULCER; ll1 - PSHx: 08:32 None; ll1 - Immunization history:: Client reports receiving the 1st dose of the Covid vaccine. - Social history:: Smoking status: Patient denies any tobacco usage or history of. Screenin:15 Abuse screen: Denies threats or abuse. Denies injuries from another. Nutritional ww screening: No deficits noted. Tuberculosis screening: No symptoms or risk factors identified. Fall Risk None identified. Assessment: 09:14 General: Appears in no apparent distress. uncomfortable, Behavior is cooperative. Pain: ww Complains of pain in generalized body aches. Neuro: Level of Consciousness is awake, alert, obeys commands, Oriented to person, place, time, situation, Moves all extremities. Speech is normal. Cardiovascular: Patient's skin is warm and dry. Chest pain is denied. Respiratory: Airway is patent Respiratory effort is even, unlabored, Respiratory pattern is regular, symmetrical. GI: No signs and/or symptoms were reported involving the gastrointestinal system. Abdomen is round. EENT: Throat is reddened Reports pain in uvula, left aspect of posterior pharynx and right aspect of posterior pharynx when swallowing. Derm: Skin is intact, Skin is pink, warm \T\ dry. 10:48 Reassessment: Patient appears in no apparent distress at this time. No changes from ww previously documented assessment. Patient and/or family updated on plan of care and expected duration. Pain level reassessed. Patient is alert, oriented x 3, equal unlabored respirations, skin warm/dry/pink. Vital Signs: 08:33 BP 166 / 81; Pulse 97; Resp 18; Temp 98.3; Pulse Ox 99% on R/A; Weight 104.33 kg; ll1 Height 5 ft. 10 in. (177.80 cm); Pain 10/10; 09:15 BP 164 / 73; Pulse 84; Resp 16; Pulse Ox 100% ; ww 08:33 Body Mass Index 33.00 (104.33 kg, 177.80 cm) ll1 ED Course: 08:17 Patient arrived in ED. rg4 08:17 Hay Mosqueda PA is PHCP. jmm 08:17 Du Osborn MD is Attending Physician. jmm 08:26 Arm band placed on Patient placed in an exam room, on a stretcher. ss 08:32 Jessica Chairez, RONALD is Primary Nurse. ww 08:34 Triage completed. ll1 09:12 Chest Single View XRAY In Process Unspecified. EDMS 09:15 Patient has correct armband on for positive identification. Bed in low position. Call ww light in reach. Side rails up X 1. Adult w/ patient. Pulse ox on. NIBP on. 10:49 No provider procedures requiring assistance completed. Patient did not have IV access ww during this emergency room visit. Administered Medications: 09:10 Drug: Tussionex Pennkinetic ER (chlorpheniramine-hydrocodone) Suspension 5 ml Route: PO;ww :14 Drug: Ibuprofen 400 mg Route: PO; ww : Drug: Xopenex (levalbuterol) (3) 1.25 mg Route: Inhalation; ww Outcome: 10:34 Discharge ordered by . terrell :49 Discharged to home ambulatory, with family. ww :49 Condition: stable :49 Discharge instructions given to patient, family, Instructed on discharge instructions, follow up and referral plans. medication usage, safety practices, Demonstrated understanding of instructions, follow-up care, medications, Prescriptions given X 3. : Patient left the ED. ww Signatures: Dispatcher [employer] EDMS Hay Mosqueda PA PA jmm Smirch, Shelby, RN RN Shirley Stafford rg4 Mitali Zimmerman RN RN 1 Jessica Chairez RN RN
--- NOTE | 2021-06-20 10:35 | EDPHYS ---
Physician Documentation [facility] Name: Jose Xie Age: 66 yrs Sex: Male : 1955 Arrival Date: 06/20/2021 Time: 08:17 Bed 19 Private MD: ERROL Physician Du Osborn HPI: 06/20 08:30 This 66 yrs old Male presents to ER via Ambulatory with complaints of Cough, jmm Sore Throat. 08:30 The patient or guardian reports cough. Onset: The symptoms/episode began/occurred jmm gradually. Modifying factors: The symptoms are alleviated by nothing, the symptoms are aggravated by nothing. Associated signs and symptoms: Pertinent positives: sore throat. Historical: - Allergies: 08:32 No Known Allergies; ll1 - PMHx: 08:32 diabetes mellitus; Hypertensive disorder; ULCER; ll1 - PSHx: 08:32 None; ll1 - Immunization history:: Client reports receiving the 1st dose of the Covid vaccine. - Social history:: Smoking status: Patient denies any tobacco usage or history of. ROS: 08:30 Constitutional: Positive for body aches, chills. jmm 08:30 Cardiovascular: Positive for chest pain, with cough. 08:30 Respiratory: Positive for cough. 08:30 All other systems are negative. Exam: 08:30 Constitutional: This is a well developed, well nourished patient who is awake, alert, jmm and in no acute distress. Head/Face: atraumatic. Eyes: EOMI, no conjunctival erythema appreciated ENT: Moist Mucus Membranes Neck: Trachea midline, Supple Chest/axilla: Normal chest wall appearance and motion. Cardiovascular: Regular rate and rhythm. No edema appreciated Respiratory: Normal respirations, no respiratory distress appreciated Abdomen/GI: Non distended, soft Back: Normal ROM Skin: General appearance color normal MS/ Extremity: Moves all extremities, no obvious deformities appreciated, no edema noted to the lower extremities Neuro: Awake and alert Psych: Behavior is normal, Mood is normal, Patient is cooperative and pleasant Vital Signs: 08:33 BP 166 / 81; Pulse 97; Resp 18; Temp 98.3; Pulse Ox 99% on R/A; Weight 104.33 kg; ll1 Height 5 ft. 10 in. (177.80 cm); Pain 10/10; 09:15 BP 164 / 73; Pulse 84; Resp 16; Pulse Ox 100% ; ww 08:33 Body Mass Index 33.00 (104.33 kg, 177.80 cm) ll1 MDM: 08:30 [facility] 10:32 Data reviewed: vital signs, nurses notes. Counseling: I had a detailed discussion with terrell the patient and/or guardian regarding: the historical points, exam findings, and any diagnostic results supporting the discharge/admit diagnosis, lab results, the need for outpatient follow up, to return to the emergency department if symptoms worsen or persist or if there are any questions or concerns that arise at home. ED course: Patient is alert and non toxic in appearance in the ED. No signs of resp distress. Patient treated with oral abx and otherwise given strict return precautions. Patient understood and agrees with the plan of care. . 06/20 08:32 Order name: COVID-19/FLU A+B (Document "Date of Onset" if Symptomatic); Complete Time: [facility] 10:27 06/20 08:34 Order name: Strep; Complete Time: 10:03 [facility] 06/20 08:34 Order name: Chest Single View XRAY; Complete Time: 09:45 [facility] 06/20 10:06 Order name: Throat Culture EDMS Administered Medications: 09:10 Drug: Tussionex Pennkinetic ER (chlorpheniramine-hydrocodone) Suspension 5 ml Route: PO;ww 09:14 Drug: Ibuprofen 400 mg Route: PO; ww 09:14 Drug: Xopenex (levalbuterol) (3) 1.25 mg Route: Inhalation; ww Disposition Summary: 06/20/21 10:34 Discharge Ordered [facility] Condition: Stable [facility] Diagnosis - Pneumonia [facility] - With: Private Physician - When: 2 - 3 days - Reason: Recheck today's complaints, Continuance of care, Re-evaluation by your physician Discharge Instructions: - Discharge Summary Sheet [facility] - Community-Acquired Pneumonia, Adult [facility] Forms: - Medication Reconciliation Form [facility] - Thank You Letter [facility] - Antibiotic Education [facility] - Prescription Opioid Use [facility] Prescriptions: - albuterol sulfate 90 mcg/actuation Inhalation HFA aerosol inhaler - inhale 2 puff by INHALATION route every 4-6 hours; 1 Pump; Refills: 0, Product [facility] Selection Permitted - levofloxacin 750 mg Oral Tablet - take 1 tablet by ORAL route once daily for 10 days; 10 tablet; Refills: 0, [facility] Product Selection Permitted - Albuterol Sulfate 2.5 mg /3 mL (0.083 %) Inhalation Solution for Nebulization - inhale 1 unit by NEBULIZATION route every 8 hours As needed; 1 box; Refills: 0, [facility] Product Selection Permitted Addendum: 06/24/2021 18:33 Co-signature as Attending Physician, Du Osborn MD I agree with the assessment and c fairchild plan of care. Signatures: Dispatcher [employer] Du Mora MD MD cha Mickail, Joel, PA PA jmm Lewis, Lynsay, RN RN ll1 Jessica Chairez RN RN ww
[2021-06-20 10:53] VITALS: TEMP 98.3
[2021-06-20 10:54] VITALS: BP 164/73; O2SAT 100
== END 2021-06-20 10:49 | disposition home or self-care (01) ==
LOC: ER 08:14
DX: J18.9 Pneumonia, unspecified organism (principal); E11.9 Type 2 diabetes mellitus without complications; I10 Essential (primary) hypertension; Z20.822 Contact with and (suspected) exposure to COVID-19
CPT/HCPCS: 87070; 87081; 0240U; 71045; 99284

== ENCOUNTER 2021-07-01 10:02 | Emergency (ER) | payer MEDICARE, OTHER ==
--- OUTSIDE RECORDS SUMMARY | 2021-07-01 10:05 | XMS REPORT | Continuity of Care Document ---
:1955 Author Organization [facility] t Address [address] Kwan [address] [place] [id number] Care Team Providers Name Role Phone Unavailable Unavailable Unavailable Payers Payer Name Policy Type Policy Number Effective Date Expiration Date S [facility] [id number] 2021 (MEDICARE 00:00:00 REPLACEMENT HMO) Problems This patient has no known problems. Allergies, Adverse Reactions, Alerts This patient has no known allergies or adverse reactions. Medications This patient has no known medications. Procedures This patient has no known procedures. Encounters Start End Encounter Admission Attending Care Care Encounter Source Date/Time Date/Time Type Type Clinicians Facility Department ID 2021-04-13 2021-04-13 [facility] [id number] [facility]01[facility] 12[facility]01[facility] Results This patient has no known results.
[2021-07-01] MEDS ORDERED: DOXYCYCLINE 100 MG CAP PO ONE (11:08)
[2021-07-01] MEDS ORDERED: IBUPROFEN 400 MG TAB ONE (11:08)
[2021-07-01] MEDS ORDERED: TETANUS & DIPHTHERIA TOX,ADULT 0.5 ML VIAL ONE (11:08)
--- NOTE | 2021-07-01 11:41 | RAD REPORT ---
EXAM DESCRIPTION: RAD - Humerus Left - 07/01/2021 11:35 am CLINICAL HISTORY: PAIN COMPARISON: No comparisons FINDINGS: No fracture or dislocation is seen.
--- NOTE | 2021-07-01 11:42 | RAD REPORT ---
EXAM DESCRIPTION: RAD - Hand Left 3 View - 07/01/2021 11:36 am CLINICAL HISTORY: PAIN COMPARISON: No comparisons FINDINGS: Soft tissue swelling is seen along the lateral aspect of the hand. No fracture, dislocatio n or radiopaque foreign body evident.
--- NOTE | 2021-07-01 11:45 | EDPHYS ---
Physician Documentation [facility] Name: Jose Xie Age: 66 yrs Sex: Male : 1955 Arrival Date: 07/01/2021 Time: 10:03 Bed 11 Private MD: David Joy ED Physician Jeannette Jaeger HPI: 07/01 10:46 This 66 yrs old Male presents to ER via Ambulatory with complaints of Hand ma2 Injury - with nailgun. 10:46 The complaints affect the left hand diffusely. Onset: The symptoms/episode ma2 began/occurred suddenly, 1 hour(s) ago. Associated signs and symptoms: Pertinent negatives: fever, numbness distally, tingling distally. 6-year-old male with history of diabetes was nailing 2x4 nail went through the wood and punctured his left hand, is here with puncture wound, mild pain no active bleeding no change in sensation or focal weakness.. Historical: - Allergies: 10:10 No Known Allergies; ab2 - PMHx: 10:10 diabetes mellitus; Hypertensive disorder; ULCER; ab2 - Immunization history:: Adult Immunizations up to date. - Social history:: Smoking status: Patient reports the use of cigarette tobacco products, smokes one-half pack cigarettes per day, Patient/guardian denies using alcohol, street drugs, The patient lives with family. - Family history:: not pertinent. ROS: 10:46 Constitutional: Negative for fever, chills, and weight loss. ma2 10:46 All other systems are negative. Exam: 10:46 Constitutional: This is a well developed, well nourished patient who is awake, alert, ma2 and in no acute distress. Chest/axilla: Normal chest wall appearance and motion. Nontender with no deformity. No lesions are appreciated. Cardiovascular: Regular rate and rhythm with a normal S1 and S2. No gallops, murmurs, or rubs. Normal PMI, no JVD. No pulse deficits. Respiratory: Lungs have equal breath sounds bilaterally, clear to auscultation and percussion. No rales, rhonchi or wheezes noted. No increased work of breathing, no retractions or nasal flaring. Abdomen/GI: Soft, non-tender, with normal bowel sounds. No distension or tympany. No guarding or rebound. No evidence of tenderness throughout. Skin: Warm, dry with normal turgor. Normal color with no rashes, no lesions, and no evidence of cellulitis. MS/ Extremity: Wound to left hand proximal to middle finger in the palm, there is no active bleeding, all joint movement is intact sensation is intact cap refill is brisk, no signs of induration, no signs of tenosynovitis at this time. Otherwise pulses equal, no cyanosis. Neurovascular intact. Full, normal range of motion. Neuro: Awake and alert, GCS 15, oriented to person, place, time, and situation. Cranial nerves II-XII grossly intact. Motor strength 5/5 in all extremities. Sensory grossly intact. Cerebellar exam normal. Normal gait. Vital Signs: 10:17 BP 147 / 89; Pulse 90; Resp 18; Temp 97.9; Pulse Ox 98% ; Weight 113.4 kg; Height 5 ft. ab2 7 in. (170.18 cm); Pain 0/10; 12:09 BP 139 / 88; Pulse 86; Resp 18; Pulse Ox 99% on R/A; ld1 10:17 Body Mass Index 39.16 (113.40 kg, 170.18 cm) ab2 MDM: 10:12 Patient medically screened. ma2 10:46 Differential diagnosis: closed fracture, contusion, abrasion, tendonitis, No ma2 tenosynovitis, there is puncture wound to left hand and also states he has left arm pain when he bends elbow that has been going on for 2 weeks and he would like that to be checked out. Data reviewed: vital signs, nurses notes. Counseling: I had a detailed discussion with the patient and/or guardian regarding: the historical points, exam findings, and any diagnostic results supporting the discharge/admit diagnosis, the presence of at least one elevated blood pressure reading (>120/80) during this emergency department visit, the need for outpatient follow up. Response to treatment: the patient's symptoms have markedly improved after treatment. 07/01 10:42 Order name: Humerus Left XRAY; Complete Time: 11:43 ma2 07/01 10:42 Order name: Hand Left 3 View XRAY: FB?; Complete Time: 11:44 ma2 Administered Medications: 11:15 Drug: Tetanus-Diphtheria Toxoid Adult 0.5 ml {Health Therapist: [employer]. Exp: jl7 05/22/2023. Lot #: [id number]. } Route: IM; Site: right deltoid; 11:16 Drug: Motrin (ibuprofen) 400 mg Route: PO; 11:16 Drug: Clindamycin 300 mg Route: PO; 11:16 Drug: Doxycycline 100 mg Route: PO; jl7 Disposition Summary: 07/01/21 11:45 Discharge Ordered Location: Home ma2 Condition: Stable ma2 Diagnosis - Puncture wound without foreign body of left hand ma2 Followup: ma2 - With: Private Physician - When: Tomorrow - Reason: If symptoms return, Continuance of care Discharge Instructions: - Discharge Summary Sheet ma2 - Puncture Wound, [id number] ma2 Forms: - Medication Reconciliation Form ma2 - Thank You Letter ma2 - Antibiotic Education ma2 - Prescription Opioid Use ma2 Prescriptions: - Augmentin 875-125 mg Oral Tablet - take 1 tablet by ORAL route every 12 hours for 10 days; 20 tablet; Refills: 0, ma2 Product Selection Permitted - Clindamycin HCl 300 mg Oral Capsule - take 1 capsule by ORAL route every 6 hours for 10 days; 40 capsule; Refills: 0, ma2 Product Selection Permitted - Diclofenac Sodium 75 mg Oral Tablet Sustained Release - take 1 tablet by ORAL route 2 times per day; 30 tablet; Refills: 0, Product ma2 Selection Permitted Signatures: Dispatcher [employer] Gray Proctor RN RN jl7 Jeannette Jaeger MD MD tn2 Balwinder Alexandre2
--- NOTE | 2021-07-01 11:45 | ER ---
Nurse's Notes [facility] Name: Jose Xie Age: 66 yrs Sex: Male : 1955 Arrival Date: 07/01/2021 Time: 10:03 Bed 11 Private MD: David Joy Diagnosis: Puncture wound without foreign body of left hand Presentation: 07/01 10:08 Chief complaint: Patient states: "I was nailing a 2 x 4 and the nail went through the ab2 wood and got my hand." Pt has puncture wound to palm of left hand, bleeding controlled at this time. Coronavirus screen: Vaccine status: Patient reports receiving the 1st dose of the Covid vaccine. Client denies travel out of the [place] in the last 14 days. At this time, the client does not indicate any symptoms associated with coronavirus-19. Ebola Screen: Patient negative for fever greater than or equal to 101.5 degrees Fahrenheit, and additional compatible Ebola Virus Disease symptoms Patient denies exposure to infectious person. Patient denies travel to an Ebola-affected area in the 21 days before illness onset. No symptoms or risks identified at this time. Initial Sepsis Screen: Does the patient meet any 2 criteria? No. Patient's initial sepsis screen is negative. Does the patient have a suspected source of infection? No. Patient's initial sepsis screen is negative. Risk Assessment: Do you want to hurt yourself or someone else? Patient reports no desire to harm self or others. Onset of symptoms is unknown. 10:08 Method Of Arrival: Ambulatory ab2 10:08 Acuity: CY 4 ab2 Triage Assessment: 10:10 General: Appears in no apparent distress. uncomfortable, Behavior is calm, cooperative, ab2 appropriate for age. Pain: Complains of pain in left hand Pain currently is 9 out of 10 on a pain scale. Neuro: Level of Consciousness is awake, alert, obeys commands, Oriented to person, place, time, situation, Appropriate for age [employer]visor [employer] are equal bilaterally Moves all extremities. Gait is steady, Speech is normal. Respiratory: Airway is patent Respiratory effort is even, unlabored, Respiratory pattern is regular, symmetrical. GI: No deficits noted. No signs and/or symptoms were reported involving the gastrointestinal system. Musculoskeletal:. Injury Description: Puncture sustained to left hand. Historical: - Allergies: 10:10 No Known Allergies; ab2 - PMHx: 10:10 diabetes mellitus; Hypertensive disorder; ULCER; ab2 - Immunization history:: Adult Immunizations up to date. - Social history:: Smoking status: Patient reports the use of cigarette tobacco products, smokes one-half pack cigarettes per day, Patient/guardian denies using alcohol, street drugs, The patient lives with family. - Family history:: not pertinent. Screenin:16 Abuse screen: Denies threats or abuse. Denies injuries from another. Nutritional ab2 screening: No deficits noted. Tuberculosis screening: No symptoms or risk factors identified. Fall Risk None identified. Assessment: 12:09 General: Appears in no apparent distress. comfortable, Behavior is calm, cooperative, ld1 appropriate for age. Pain: Complains of pain in anterior aspect of left shoulder Pain does not radiate. Pain currently is 7 out of 10 on a pain scale. Quality of pain is described as throbbing. Neuro: Level of Consciousness is awake, alert, obeys commands, Oriented to person, place, time, situation. Cardiovascular: Capillary refill < 3 seconds Patient's skin is warm and dry. Respiratory: Airway is patent Respiratory effort is even, unlabored. GI: Abdomen is round non-distended. : No signs and/or symptoms were reported regarding the genitourinary system. EENT: No signs and/or symptoms were reported regarding the EENT system. Derm: Wound noted left hand. Musculoskeletal: No signs and/or symptoms reported regarding the musculoskeletal system. Vital Signs: 10:17 BP 147 / 89; Pulse 90; Resp 18; Temp 97.9; Pulse Ox 98% ; Weight 113.4 kg; Height 5 ft. ab2 7 in. (170.18 cm); Pain 0/10; 12:09 BP 139 / 88; Pulse 86; Resp 18; Pulse Ox 99% on R/A; ld1 10:17 Body Mass Index 39.16 (113.40 kg, 170.18 cm) ab2 ED Course: 10:03 Patient arrived in ED. am2 10:04 David Joy MD is Private Physician. am2 10:07 Jeannette Jaeger MD is Attending Physician. ma2 10:10 Triage completed. ab2 10:11 Arm band placed on left wrist. ab2 10:16 Balwinder Alexandre is Primary Nurse. ab2 10:16 No provider procedures requiring assistance completed. ab2 10:17 Patient has correct armband on for positive identification. Side rails up X2. ab2 10:17 Wound care: to puncture located on left hand was cleaned with soap and water. ab2 11:37 Humerus Left XRAY In Process Unspecified. EDMS 11:37 Hand Left 3 View XRAY: FB? In Process Unspecified. EDMS 12:09 Patient did not have IV access during this emergency room visit. ld1 Administered Medications: 11:15 Drug: Tetanus-Diphtheria Toxoid Adult 0.5 ml {Hat Trimmer: [employer]. Exp: jl7 05/22/2023. Lot #: [id number]. } Route: IM; Site: right deltoid; 11:16 Drug: Motrin (ibuprofen) 400 mg Route: PO; jl7 11:16 Drug: Clindamycin 300 mg Route: PO; jl7 11:16 Drug: Doxycycline 100 mg Route: PO; jl7 Outcome: 11:45 Discharge ordered by . ma2 12:09 Discharged to home ambulatory, with family. ld1 12:09 Condition: stable 12:09 Discharge instructions given to patient, family, Instructed on discharge instructions, follow up and referral plans. medication usage, Demonstrated understanding of instructions, follow-up care, medications, Prescriptions given X 3. 12:11 Patient left the ED. ld1 Signatures: Dispatcher [employer] Gray Proctor RN RN jl7 Velma Bailey Mohammad, MD MD ma2 Sobeida Young RN RN ld1 Balwinder Alexandre ab2
[2021-07-01 12:18] VITALS: TEMP 97.9
[2021-07-01 12:20] VITALS: BP 139/88; O2SAT 99
== END 2021-07-01 12:11 | disposition home or self-care (01) ==
LOC: ER 10:02
DX: S61.432A Puncture wound without foreign body of left hand, initial encounter (principal); W29.4XXA Contact with nail gun, initial encounter; Y93.89 Activity, other specified; Y92.9 Unspecified place or not applicable; Z23 Encounter for immunization; F17.210 Nicotine dependence, cigarettes, uncomplicated
CPT/HCPCS: 90471; 90714; 99284

== ENCOUNTER 2021-08-07 07:22 | Emergency (ER) | payer MEDICARE, OTHER ==
--- OUTSIDE RECORDS SUMMARY | 2021-08-07 07:24 | XMS REPORT | Continuity of Care Document ---
:1955 [address] [facility] t Address [address] Kwan [address] [place] [id number] Care Team Providers Name Role Phone Unavailable Unavailable Unavailable Payers Payer Name Policy Type Policy Number Effective Date Expiration Date S kristy [facility] [id number] 2021 (MEDICARE 00:00:00 REPLACEMENT HMO) Problems This patient has no known problems. Allergies, Adverse Reactions, Alerts This patient has no known allergies or adverse reactions. Medications This patient has no known medications. Procedures This patient has no known procedures. Encounters Start End Encounter Admission Attending Care Care Encounter Source Date/Time Date/Time Type Type Clinicians Facility Department ID 2021-04-13 2021-04-13 Out[facility] [id number] [facility]:01:00 12:01:00 [facility] Results This patient has no known results.
[2021-08-07] MEDS ORDERED: ASPIRIN 81 MG CHEWABLE TABLET ONE (08:56)
[2021-08-07] MEDS ORDERED: HYDROCODONE/APAP 10/325 TAB ONE (09:45)
--- NOTE | 2021-08-07 09:50 | RAD REPORT ---
EXAM DESCRIPTION: [facility] Single View08/07/2021 9:32 am CLINICAL HISTORY: Chest pain COMPARISON: June 2021 FINDINGS: The lungs appear clear of acute infiltrate. The heart is normal size IMPRESSION: No acute abnormalities displayed
--- NOTE | 2021-08-07 09:50 | RAD REPORT ---
EXAM DESCRIPTION: RAD - Humerus Left - 08/07/2021 9:32 am CLINICAL HISTORY: Left arm pain FINDINGS: No fracture is seen No bony lesion noted Calcification lateral to the humeral head may indicate calcific tendinitis
--- NOTE | 2021-08-07 10:25 | RAD REPORT ---
EXAM DESCRIPTION: USExtremity Venous [employer]08/07/2021 9:52 am CLINICAL HISTORY: Left arm pain COMPARISON: None FINDINGS: The left common carotid, left subclavian, left subclavian, left axillary, left brachial, l eft basilic, left ulnar and left radial arteries demonstrate normal waveforms. No significant stenosis/occlusion Doppler demonstrates good flow. Grayscale, color and spectral analysis performed on all vessels IMPRESSION: Unremarkable exam
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
--- NOTE | 2021-08-07 10:36 | ER ---
Nurse's Notes [facility] Name: Jose Xie Age: 66 yrs Sex: Male : 1955 Arrival Date: 08/07/2021 Time: 07:30 Bed 18 Private MD: David Joy Diagnosis: Pain in left shoulder;Pain in left upper arm Presentation: 08/07 08:34 Chief complaint: Patient states: Sudden right arm deltoid pain, radiated down arm and jl7 to left side, intermittent. Coronavirus screen: At this time, the client does not indicate any symptoms associated with coronavirus-19. Ebola Screen: No symptoms or risks identified at this time. Initial Sepsis Screen: Does the patient meet any 2 criteria? No. Patient's initial sepsis screen is negative. Does the patient have a suspected source of infection? No. Patient's initial sepsis screen is negative. Risk Assessment: Do you want to hurt yourself or someone else? Patient reports no desire to harm self or others. Onset of symptoms was August 06, 2021. Care prior to arrival: None. 08:34 Method Of Arrival: Ambulatory jl7 08:34 Acuity: CY 3 jl7 Triage Assessment: 08:39 General: Appears in no apparent distress. uncomfortable, Behavior is calm, cooperative, jl7 appropriate for age. Pain: Complains of pain in left arm Pain currently is 9 out of 10 on a pain scale. Historical: - Allergies: 08:39 No Known Allergies; jl7 - PMHx: 08:39 diabetes mellitus; Hypertensive disorder; ULCER; jl7 - Immunization history:: Client reports receiving the 1st dose of the Covid vaccine. - Social history:: Smoking status: unknown. Screenin:17 Abuse screen: Denies threats or abuse. Nutritional screening: No deficits noted. jd3 Tuberculosis screening: No symptoms or risk factors identified. Fall Risk Ambulatory Aid- None/Bed Rest/Nurse Assist (0 pts). Gait- Normal/Bed Rest/Wheelchair (0 pts) Mental Status- Oriented to own ability (0 pts). Total Palma Fall Scale indicates No Risk (0-24 pts). Assessment: 09:11 General: Appears in no apparent distress. comfortable, Behavior is calm, cooperative, jd3 appropriate for age. Pain: Complains of pain in left shoulder and left arm. Neuro: Carmichael Agitation-Sedation Scale (RASS): 0 - Alert and Calm Level of Consciousness is awake, alert, obeys commands, Oriented to person, place, time, situation. Cardiovascular: Denies chest pain, Capillary refill < 3 seconds Patient's skin is warm and dry. Respiratory: Airway is patent Respiratory effort is even, unlabored, Respiratory pattern is regular, symmetrical, Denies cough, shortness of breath. GI: No signs and/or symptoms were reported involving the gastrointestinal system. : No signs and/or symptoms were reported regarding the genitourinary system. EENT: No signs and/or symptoms were reported regarding the EENT system. Derm: Skin is intact, Skin is dry, Skin is normal, Skin temperature is warm. Musculoskeletal: Circulation, motion, and sensation intact. Range of motion: pt reports limited ROM in left arm due to pain. 09:16 Reassessment: pt refusing IV/blood work. provider notified. provider discussing plan of jd3 care with pt. pt continues to refuse IV/blood work. 10:09 Reassessment: Patient appears in no apparent distress at this time. Patient and/or jd3 family updated on plan of care and expected duration. Pain level reassessed. Patient is alert, oriented x 3, equal unlabored respirations, skin warm/dry/pink. 10:51 Reassessment: Patient appears in no apparent distress at this time. Patient and/or jd3 family updated on plan of care and expected duration. Pain level reassessed. Patient is alert, oriented x 3, equal unlabored respirations, skin warm/dry/pink. report understanding of discharge instructions. Vital Signs: 08:34 BP 164 / 83; Pulse 78; Resp 17; Temp 98; Pulse Ox 96% ; Weight 107.95 kg; Height 5 ft. jl7 10 in. (177.80 cm); Pain 9/10; 08:48 BP 169 / 87; Pulse 76; Resp 18; Pulse Ox 96% on R/A; mb7 10:09 Pulse 80; Resp 18 S; Pulse Ox 97% on R/A; jd3 10:51 BP 156 / 76; Pulse 81; Resp 18 S; Pulse Ox 97% on R/A; jd3 08:34 Body Mass Index 34.15 (107.95 kg, 177.80 cm) jl7 ED Course: 07:30 Patient arrived in ED. am2 07:30 David Joy MD is Private Physician. am2 08:05 [facility] cp 08:05 Josh Sher MD is Attending Physician. cp 08:37 Stuart Campos, RONALD is Primary Nurse. jd3 08:39 Triage completed. jl7 08:39 Arm band placed on right wrist. jl7 08:47 Bed in low position. Call light in reach. Side rails up X 1. Door closed. Noise mb7 minimized. 08:47 EKG done, by ED staff, reviewed by Du BRIGHT. mb7 09:34 XRAY Chest (1 view) In Process Unspecified. EDMS 09:34 XRAY Humerus LEFT In Process Unspecified. EDMS 09:54 US Extremity Venous Unilateral Ltd In Process Unspecified. EDMS 10:34 Oswaldo Muhammad MD is Referral Physician. cp 10:52 No provider procedures requiring assistance completed. Patient did not have IV access jd3 during this emergency room visit. 10:52 Sling applied to left arm. jd3 Administered Medications: 08:52 Drug: Aspirin Chewable Tablet 324 mg Route: PO; jd3 10:52 Follow up: Response: No adverse reaction jd3 09:41 Drug: HYDROcodone-acetaminophen 10 mg-325 mg 1 tabs Route: PO; jd3 10:52 Follow up: Response: No adverse reaction; RASS: Alert and Calm (0) jd3 Medication: 09:17 VIS not applicable for this client. jd3 Outcome: 10:35 Discharge ordered by MD. cp 10:52 Discharged to home ambulatory, with family. jd3 10:52 Condition: stable 10:52 Discharge instructions given to patient, family, Instructed on discharge instructions, follow up and referral plans. medication usage, Demonstrated understanding of instructions, follow-up care, medications, Prescriptions given X 4. 10:53 Patient left the ED. jd3 Signatures: Dispatcher [employer] EDMS Du Goldman PA PA cp Gray Joy, RN RN jl7 Velma Bailey am2 Stuart Campos, RN RN jd3 Paula Roldan mb7
[2021-08-07 10:58] VITALS: TEMP 98
[2021-08-07 11:00] VITALS: O2SAT 97
[2021-08-07 11:02] VITALS: BP 156/76
--- NOTE | 2021-08-10 12:24 | EKG ---
Test Date: 2021-08-07 Test Time: 08:41:09 Learning Development Specialist: MB MEASUREMENT RESULTS: Intervals: Rate: 77 [place]: 162 QRSD: 86 QT: 376 QTc: 425 [place]: P: 68 [place]: 162 QRS: 60 T: 206 INTERPRETIVE STATEMENTS: Normal sinus rhythm ST & T wave abnormality, consider inferolateral ischemia Abnormal ECG No previous ECG available for comparison Electronically Signed On 08-10-21 12:17:27 CDT by Logan Mendez
== END 2021-08-07 10:53 | disposition home or self-care (01) ==
LOC: ER 07:22
DX: M79.622 Pain in left upper arm (principal); M25.512 Pain in left shoulder; E11.8 Type 2 diabetes mellitus with unspecified complications; I10 Essential (primary) hypertension
CPT/HCPCS: 71045; 93005; 93971; 99284

== ENCOUNTER 2021-12-23 14:10 | Emergency (ER) | payer OTHER ==
--- OUTSIDE RECORDS SUMMARY | 2021-12-23 14:16 | XMS REPORT | Continuity of Care Document ---
:1955 Author Organization [facility] t Address [address] [place] [address] [place] [id number] Care Team Providers Name Role Phone Unavailable Unavailable Unavailable Payers Payer Name Policy Type Policy Number Effective Date Expiration Date S kristy [employer] [id number] 2021 (MEDICARE 00:00:00 REPLACEMENT HMO) Problems This patient has no known problems. Allergies, Adverse Reactions, Alerts This patient has no known allergies or adverse reactions. Medications This patient has no known medications. Procedures This patient has no known procedures. Encounters Start End Encounter Admission Attending Care Care Encounter Source Date/Time Date/Time Type Type Clinicians Facility Department ID 2021-09-24 2021-09-24 Outpatient [facility] [id number] [facility] 08:04:00 08:04:00 [facility] l [facility] 2021-04-13 2021-04-13 [id number] 12[facility]01:00 12:01:00 Medica l Group Results This patient has no known results.
[2021-12-23] MEDS ORDERED: CETIRIZINE HCL 5 MG TABLET ONE (15:37)
[2021-12-23] MEDS ORDERED: predniSONE 20 MG TAB ONE (15:38)
[2021-12-23] MEDS ORDERED: HYDROCODONE/APAP 5/325 MG TAB ONE (15:38)
[2021-12-23] MEDS ORDERED: FAMOTIDINE 20 MG TAB ONE (15:38)
[2021-12-23 15:50] LABS: SARS-CoV-2 Antigen Rapid Res Negative (Negative)
[2021-12-23] MEDS ORDERED: IBUPROFEN 200 MG TAB PO ONE (16:17)
[2021-12-23] MEDS ORDERED: IBUPROFEN 400 MG TAB ONE (16:18)
--- NOTE | 2021-12-23 16:45 | ER ---
Nurse's Notes [facility] Name: Jose Xie Age: 66 yrs Sex: Male : 1955 Arrival Date: 12/23/2021 Time: 14:16 Bed 11 Private MD: Diagnosis: Acute pharyngitis, unspecified Presentation: 12/23 14:40 Chief complaint: Patient states: sore throat x2 days, hurts when eating and drinking. 5 Coronavirus screen: Vaccine status: Patient reports receiving the 2nd dose of the covid vaccine. Client denies travel out of the [place] in the last 14 days. Ebola Screen: Patient negative for fever greater than or equal to 101.5 degrees Fahrenheit, and additional compatible Ebola Virus Disease symptoms Patient denies exposure to infectious person. Patient denies travel to an Ebola-affected area in the 21 days before illness onset. Initial Sepsis Screen: Does the patient meet any 2 criteria? No. Patient's initial sepsis screen is negative. Does the patient have a suspected source of infection? No. Patient's initial sepsis screen is negative. Risk Assessment: Do you want to hurt yourself or someone else? Patient reports no desire to harm self or others. Onset of symptoms was December 21, 2021. 14:40 Method Of Arrival: Ambulatory [facility] 14:40 Acuity: CY 3 jh5 Triage Assessment: 14:41 General: Appears in no apparent distress. uncomfortable, obese, well groomed, Behavior jh5 is calm, cooperative, appropriate for age. Pain: Denies pain. EENT: Reports. Historical: - PMHx: 14:41 diabetes mellitus; Hypertensive disorder; ULCER; jh5 - Immunization history:: Adult Immunizations up to date. - Social history:: Smoking status: Patient reports the use of cigarette tobacco products, denies chronic smoking, but will smoke occasionally. Screenin:41 Abuse screen: Denies threats or abuse. Denies injuries from another. Nutritional 5 screening: No deficits noted. Tuberculosis screening: No symptoms or risk factors identified. Fall Risk None identified. Assessment: 14:42 EENT: Throat is pink is reddened. 5 14:42 Respiratory: Airway is patent Respiratory effort is even, unlabored, Breath sounds are jh5 clear. 15:00 General: Appears uncomfortable, Behavior is agitated. Pain: Complains of pain in head em6 Pain does not radiate. Pain currently is 6 out of 10 on a pain scale. Neuro: Level of Consciousness is awake, alert, obeys commands, Oriented to person, place, time, situation, Reports headache frontal area. Cardiovascular: Patient's skin is warm and dry. Respiratory: Airway is patent Respiratory effort is even, unlabored, Breath sounds are clear bilaterally. GI: No signs and/or symptoms were reported involving the gastrointestinal system. : No signs and/or symptoms were reported regarding the genitourinary system. EENT: Throat is pink is reddened. Derm: No signs and/or symptoms reported regarding the dermatologic system. Musculoskeletal: Circulation, motion, and sensation intact. Range of motion: intact in all extremities. 16:00 Reassessment: Patient and/or family updated on plan of care and expected duration. Pain em6 level reassessed. Patient is alert, oriented x 3, equal unlabored respirations, skin warm/dry/pink. 17:00 Reassessment: Patient and/or family updated on plan of care and expected duration. Pain em6 level reassessed. Patient is alert, oriented x 3, equal unlabored respirations, skin warm/dry/pink. Patient states symptoms have improved. Vital Signs: 14:40 Weight 103.87 kg; Height 5 ft. 10 in. (177.80 cm); jh5 15:57 BP 207 / 91; Pulse 88; Resp 20; Temp 99.2; Pulse Ox 100% ; em6 17:10 BP 185 / 90; Pulse 82; Resp 18; Pulse Ox 96% on R/A; em6 14:40 Body Mass Index 32.86 (103.87 kg, 177.80 cm) jh5 15:57 notified provider of the BP no new orders. em6 ED Course: 14:16 Patient arrived in ED. rg4 14:16 Emily Pickens FNP-C [facility]. snw 14:17 Jeremie Bravo MD is Attending Physician. snw 14:21 Kia Ervin, RONALD is Primary Nurse. em6 14:41 Triage completed. jh5 14:41 Arm band placed on right wrist. jh5 14:41 Patient has correct armband on for positive identification. jh5 14:42 No provider procedures requiring assistance completed. jh5 15:07 Strep Sent. em6 15:07 Flu Sent. em6 15:07 SARS RAPID Sent. em6 16:39 PHCP role handed off by Emily Pickens FNP-C jmm 16:39 Hay Mosqueda PA is PHCP. terrell 16:49 Emily Pickens FNP-C is PHCP. snw 17:11 Patient did not have IV access during this emergency room visit. em6 Administered Medications: 15:48 Drug: HYDROcodone-acetaminophen 5 mg-325 mg 1 tabs Route: PO; em6 16:28 Follow up: Response: No adverse reaction; RASS: Alert and Calm (0) em6 15:48 Drug: predniSONE 40 mg Route: PO; em6 16:28 Follow up: Response: No adverse reaction em6 15:48 Drug: Pepcid (famotidine) 20 mg Route: PO; em6 16:29 Follow up: Response: No adverse reaction em6 15:48 Drug: ZyrTEC - Cetirizine 10 mg Route: PO; em6 16:29 Follow up: Response: No adverse reaction em6 16:26 Drug: Motrin (ibuprofen) 600 mg Route: PO; em6 16:51 Follow up: Response: No adverse reaction em6 16:54 Drug: Zithromax (azithromycin) 500 mg Route: PO; em6 17:10 Follow up: Response: No adverse reaction em6 Medication: 14:41 VIS not applicable for this client. 5 Outcome: 16:44 Discharge ordered by MD. snw 17:11 Discharged to home ambulatory, with significant other. em6 17:11 Condition: stable 17:11 Discharge instructions given to patient, significant other, Instructed on discharge instructions, follow up and referral plans. medication usage, Demonstrated understanding of instructions, follow-up care, medications, Prescriptions given X 3. 17:12 Patient left the ED. em6 Signatures: Emily Pickens FNP-C [employer] Hay Mosqueda PA PA jmm Garcia, Rubi rg4 Ilda Birmingham RN RN jh5 Kia Ervin RN RN em6 Corrections: (The following items were deleted from the chart) 15:59 15:57 BP 207 / 91; Pulse 88bpm; Resp 22bpm; Pulse Ox 100%; Temp 99.2F; em6 em6 16:27 15:57 BP 207 / 91; Pulse 88bpm; Resp 20bpm; Pulse Ox 100%; Temp 99.2F; em6 em6
--- NOTE | 2021-12-23 16:45 | EDPHYS ---
Physician Documentation [facility] Name: Jose Xie Age: 66 yrs Sex: Male : 1955 Arrival Date: 12/23/2021 Time: 14:16 Bed 11 Private MD: ED Physician Jeremie Bravo HPI: 12/23 14:35 This 66 yrs old Male presents to ER via Unassigned with complaints of Sore snw Throat. 14:35 The patient presents with sore throat. The patient describes throat pain as dry, raw. snw Onset: The symptoms/episode began/occurred suddenly. Severity of symptoms: At their worst the symptoms were moderate. Associated signs and symptoms: Pertinent positives: cough, fever, flu-like symptoms, Sore throat. The patient has not experienced similar symptoms in the past. The patient has not recently seen a physician. Historical: - PMHx: 14:41 diabetes mellitus; Hypertensive disorder; ULCER; jh5 - Immunization history:: Adult Immunizations up to date. - Social history:: Smoking status: Patient reports the use of cigarette tobacco products, denies chronic smoking, but will smoke occasionally. ROS: 14:32 Constitutional: Negative for chills and weight loss, + fever Eyes: Negative for injury, snw pain, redness, and discharge. 14:32 Neck: Negative for injury, pain, and swelling, Cardiovascular: Negative for chest pain, palpitations, and edema, Respiratory: Negative for shortness of breath, cough, wheezing, and pleuritic chest pain, Abdomen/GI: Negative for abdominal pain, nausea, vomiting, diarrhea, and constipation, Back: Negative for injury and pain, MS/Extremity: Negative for injury and deformity, Skin: Negative for injury, rash, and discoloration, Neuro: Negative for headache, weakness, numbness, tingling, and seizure, Psych: Negative for depression, anxiety, suicide ideation, homicidal ideation, and hallucinations. 14:32 ENT: Positive for sore throat. Exam: 14:31 Constitutional: This is a well developed, well nourished patient who is awake, alert, snw and in no acute distress. Head/Face: Normocephalic, atraumatic. Eyes: Pupils equal round and reactive to light, extra-ocular motions intact. Lids and lashes normal. Conjunctiva and sclera are non-icteric and not injected. Cornea within normal limits. Periorbital areas with no swelling, redness, or edema. Neck: Trachea midline, no thyromegaly or masses palpated, and no cervical lymphadenopathy. Supple, full range of motion without nuchal rigidity, or vertebral point tenderness. No Meningismus. Chest/axilla: Normal chest wall appearance and motion. Nontender with no deformity. No lesions are appreciated. Respiratory: Lungs have equal breath sounds bilaterally, clear to auscultation and percussion. No rales, rhonchi or wheezes noted. No increased work of breathing, no retractions or nasal flaring. Abdomen/GI: Soft, non-tender, with normal bowel sounds. No distension or tympany. No guarding or rebound. No evidence of tenderness throughout. Back: No spinal tenderness. No costovertebral tenderness. Full range of motion. Skin: Warm, dry with normal turgor. Normal color with no rashes, no lesions, and no evidence of cellulitis. MS/ Extremity: Pulses equal, no cyanosis. Neurovascular intact. Full, normal range of motion. Neuro: Awake and alert, GCS 15, oriented to person, place, time, and situation. Cranial nerves II-XII grossly intact. Motor strength 5/5 in all extremities. Sensory grossly intact. Cerebellar exam normal. Normal gait. Psych: Awake, alert, with orientation to person, place and time. Behavior, mood, and affect are within normal limits. 14:31 ENT: Nose: is normal, Mouth: is normal, Tongue: reddened, Posterior pharynx: erythema, that is moderate, Voice: is normal. 14:31 Cardiovascular: Rate: normal, Rhythm: regular, Pulses: no pulse deficits are appreciated, Heart sounds: murmur, grade 4 over 6, Edema: is not appreciated. Vital Signs: 14:40 Weight 103.87 kg; Height 5 ft. 10 in. (177.80 cm); [facility] 15:57 BP 207 / 91; Pulse 88; Resp 20; Temp 99.2; Pulse Ox 100% ; em6 17:10 BP 185 / 90; Pulse 82; Resp 18; Pulse Ox 96% on R/A; em6 14:40 Body Mass Index 32.86 (103.87 kg, 177.80 cm) [facility] 15:57 notified provider of the BP no new orders. em6 MDM: 14:21 Patient medically screened. snw 16:46 Data reviewed: vital signs, nurses notes. Data interpreted: Pulse oximetry: on room air snw is 100 %. Interpretation: normal. Counseling: I had a detailed discussion with the patient and/or guardian regarding: the historical points, exam findings, and any diagnostic results supporting the discharge/admit diagnosis, the presence of at least one elevated blood pressure reading (>120/80) during this emergency department visit, lab results, the need for outpatient follow up, to return to the emergency department if symptoms worsen or persist or if there are any questions or concerns that arise at home. Special discussion: Based on the history and exam findings, there is no indication for further emergent testing or inpatient evaluation. I discussed with the patient/guardian the need to see the controller repairer and tester for further evaluation of the symptoms. I discussed with the patient/guardian the need to see the primary care provider for further evaluation of the symptoms. 12/23 14:31 Order name: SARS RAPID; Complete Time: 15:51 snw 12/23 14:31 Order name: Flu snw 12/23 14:31 Order name: Strep; Complete Time: 16:43 snw 12/23 16:45 Order name: Throat Culture EDMS Administered Medications: 15:48 Drug: HYDROcodone-acetaminophen 5 mg-325 mg 1 tabs Route: PO; em6 16:28 Follow up: Response: No adverse reaction; RASS: Alert and Calm (0) em6 15:48 Drug: predniSONE 40 mg Route: PO; em6 16:28 Follow up: Response: No adverse reaction em6 15:48 Drug: Pepcid (famotidine) 20 mg Route: PO; em6 16:29 Follow up: Response: No adverse reaction em6 15:48 Drug: ZyrTEC - Cetirizine 10 mg Route: PO; em6 16:29 Follow up: Response: No adverse reaction em6 16:26 Drug: Motrin (ibuprofen) 600 mg Route: PO; em6 16:51 Follow up: Response: No adverse reaction em6 16:54 Drug: Zithromax (azithromycin) 500 mg Route: PO; em6 17:10 Follow up: Response: No adverse reaction em6 Disposition: 17:40 Co-signature as Attending Physician, Jeremie Bravo MD. rn Disposition Summary: 12/23/21 16:44 Discharge Ordered Location: Home snw Condition: Stable snw Diagnosis - Acute pharyngitis, unspecified snw Followup: snw - With: Emergency Department - When: As needed - Reason: Worsening of condition Followup: snw - With: Private Physician - When: 1 - 2 days - Reason: Recheck today's complaints, Continuance of care, Re-evaluation by your physician Discharge Instructions: - Discharge Summary Sheet snw - Heart Murmur snw - Pharyngitis snw - Upper Respiratory Infection, Adult snw - Hypertension, Adult snw - Form - Blood Pressure Record Sheet snw Forms: - Medication Reconciliation Form snw - Thank You Letter snw - Antibiotic Education snw - Prescription Opioid Use snw Prescriptions: - Zyrtec 10 mg Oral Tablet - take 1 tablet by ORAL route once daily As needed; 20 tablet; Refills: 0, snw Product Selection Permitted - Pepcid 20 mg Oral Tablet - take 1 tablet by ORAL route once daily; 20 tablet; Refills: 0, Product snw Selection Permitted - Zithromax 500 mg Oral Tablet - take 1 tablet by ORAL route once daily for 3 days; 3 tablet; Refills: 0, snw Product Selection Permitted Signatures: Dispatcher [employer] EDMS Emily Pickens, RENITA-C WASTE PAPER HAMMERMILL OPERATOR-Csnw Hay Mosqueda PA PA jmm Nieto, Roman, MD MD rn Rees, Jessica, RN RN jh5 Kia Ervin RN RN em6
[2021-12-23] MEDS ORDERED: AZITHROMYCIN 250 MG TAB ONE (17:04)
[2021-12-23 17:16] VITALS: TEMP 99.2
[2021-12-23 17:17] VITALS: BP 185/90; O2SAT 96
== END 2021-12-23 17:12 | disposition home or self-care (01) ==
LOC: ER 14:10
DX: J02.9 Acute pharyngitis, unspecified (principal); E11.9 Type 2 diabetes mellitus without complications; I10 Essential (primary) hypertension; F17.210 Nicotine dependence, cigarettes, uncomplicated; Z20.822 Contact with and (suspected) exposure to COVID-19
CPT/HCPCS: 87070; 36415; 87081; 87804 ×2; 99283; 87811; J7512

== ENCOUNTER 2021-12-25 08:54 | Emergency (ER) | payer OTHER ==
--- OUTSIDE RECORDS SUMMARY | 2021-12-25 08:57 | XMS REPORT | Continuity of Care Document ---
:1955 Author Organization [facility] t Address [address] [place]wan [address] [place] [id number] Care Team Providers Name Role Phone Unavailable Unavailable Unavailable Payers Payer Name Policy Type Policy Number Effective Date Expiration Date [id number] (MEDICARE 00:00:00 REPLACEMENT HMO) Problems This patient has no known problems. Allergies, Adverse Reactions, Alerts This patient has no known allergies or adverse reactions. Medications This patient has no known medications. Procedures This patient has no known procedures. Encounters Start End Encounter Admission Attending Care Care Encounter Source Date/Time Date/Time Type Type Clinicians Facility Department ID 2021-09-24 2021-09-24 [facility] [id number] 08:04[facility] [id number] 2021-04-13 2021-04-13 [facility] [id number] [facility] 12:01:[facility] 12:01:[facility] Results This patient has no known results.
[2021-12-25] MEDS ORDERED: OSELTAMIVIR 75 MG CAP ONE (10:25)
[2021-12-25] MEDS ORDERED: BENZONATATE 100 MG CAP PO ONE (10:49)
--- NOTE | 2021-12-25 11:41 | RAD REPORT ---
EXAM DESCRIPTION: Charisma Morocho And Brenda (2 Views)12/25/2021 11:24 am CLINICAL HISTORY: Cough COMPARISON: July 1021 FINDINGS: Metallic densities overlie the left chest. The lungs appear clear of acute infiltrate. The heart is normal size IMPRESSION: No acute abnormalities displayed
--- NOTE | 2021-12-25 12:22 | ER ---
Nurse's Notes [facility] Name: Jose Xie Age: 66 yrs Sex: Male : 1955 Arrival Date: 12/25/2021 Time: 09:00 Bed 11 Private MD: Eddi Esteban Diagnosis: Influenza due to identified novel influenza A virus with other respiratory manifestations Presentation: 12/25 09:15 Chief complaint: Patient states: PETERSON, fatigue, sore throat x1 day. Coronavirus screen: jl7 Vaccine status: Patient reports receiving the 2nd dose of the covid vaccine. fatigue, headache, muscle pain, Client presents with at least one sign or symptom that may indicate coronavirus-19. Standard/surgical mask placed on the client. Provider contacted for isolation considerations. Ebola Screen: No symptoms or risks identified at this time. Initial Sepsis Screen: Does the patient meet any 2 criteria? No. Patient's initial sepsis screen is negative. Does the patient have a suspected source of infection? No. Patient's initial sepsis screen is negative. Risk Assessment: Do you want to hurt yourself or someone else? Patient reports no desire to harm self or others. Onset of symptoms was December 24, 2021. 09:15 Method Of Arrival: Ambulatory [facility] 09:15 Acuity: CY 3 jl7 Triage Assessment: 09:17 General: Appears in no apparent distress. uncomfortable, Behavior is calm, cooperative, jl7 appropriate for age. Pain: Complains of pain in PETERSON and body aches Pain currently is 10 out of 10 on a pain scale. EENT: Reports sore throat. Historical: - Allergies: :17 No Known Allergies; jl7 - Home Meds: 09:17 Lisinopril Oral [Active]; amlodipine oral [Active]; jl7 - PMHx: 09:17 diabetes mellitus; Hypertensive disorder; ULCER; jl7 - Immunization history:: Client reports receiving the 2nd dose of the Covid vaccine. - Social history:: Smoking status: Patient reports the use of cigarette tobacco products. Screenin:07 Abuse screen: Denies threats or abuse. Nutritional screening: No deficits noted. kr3 Tuberculosis screening: No symptoms or risk factors identified. Fall Risk Ambulatory Aid- Crutches/Cane/Walker (15 pts). Gait- Weak (10 pts.). Total Palma Fall Scale indicates Low Risk Score (25-44 pts). Side Rails Up X 2 Frequent Obs/Assesments occuring. Assessment: 10:30 EENT: Throat is pink. kr3 11:30 Reassessment: No changes from previously documented assessment. Patient and/or family kr3 updated on plan of care and expected duration. Pain level reassessed. 12:30 Reassessment: No changes from previously documented assessment. Patient and/or family kr3 updated on plan of care and expected duration. Pain level reassessed. Respiratory:. 13:02 Reassessment: No changes from previously documented assessment. Respiratory: Airway is kr3 patent Respiratory effort is even, unlabored. 13:07 Respiratory: kr3 Vital Signs: 09:15 BP 137 / 66; Pulse 90; Resp 17; Temp 99.3; Pulse Ox 94% ; Weight 104.33 kg; Height 5 jl7 ft. 10 in. (177.80 cm); Pain 10/10; 11:00 BP 140 / 79; Pulse 89; Resp 18; Pulse Ox 98% on R/A; kr3 12:00 BP 135 / 76; Pulse 88; Resp 18; Pulse Ox 99% on R/A; kr3 13:03 BP 131 / 73; Pulse 85; Resp 18; Temp 100(O); Pulse Ox 99% on R/A; kr3 09:15 Body Mass Index 33.00 (104.33 kg, 177.80 cm) jl7 ED Course: 09:00 Patient arrived in ED. am2 09:01 Eddi Esteban DO is Private Physician. am2 09:03 [facility] cp 09:03 Josh Sher MD is Attending Physician. cp 09:17 Triage completed. jl7 09:17 Arm band placed on right wrist. jl7 09:20 Bed in low position. Call light in reach. Side rails up X 1. kr3 09:28 COVID swab sent to lab. Flu and/or RSV swab sent to lab. Strep swab sent to lab. jl7 10:15 Gray Joy, RONALD is Primary Nurse. jl7 11:26 XRAY Chest Pa And Lat (2 Views) In Process Unspecified. EDMS 13:07 No provider procedures requiring assistance completed. Patient did not have IV access kr3 during this emergency room visit. Administered Medications: 10:38 Drug: Tamiflu (oseltamivir) 75 mg Route: PO; kr3 13:08 Follow up: Response: No adverse reaction kr3 10:53 Drug: Tessalon Perle (benzonatate) 200 mg Route: PO; kr3 13:09 Follow up: Response: No adverse reaction kr3 Medication: 13:08 VIS not applicable for this client. kr3 Outcome: 12:21 Discharge ordered by . megan 13:06 Patient left the ED. kr3 13:07 Discharged to home ambulatory. kr3 13:07 Condition: stable 13:07 Discharge instructions given to patient, Instructed on discharge instructions, follow up and referral plans. medication usage, Demonstrated understanding of instructions, follow-up care, medications, Prescriptions given X 3. Signatures: Dispatcher [employer] EDMS Du Goldman PA PA cp Leal, Jahala RN RN jl7 Velma Bailey am2 Komal Hernandez RN RN kr3
--- NOTE | 2021-12-25 12:22 | EDPHYS ---
Physician Documentation [facility] Name: Jose Xie Age: 66 yrs Sex: Male : 1955 Arrival Date: 12/25/2021 Time: 09:00 Bed 11 Private MD: Eddi Esteban ED Physician Josh Sher HPI: 12/25 09:30 This 66 yrs old Male presents to ER via Ambulatory with complaints of Sore cp Throat, Headache. 09:30 The patient presents with sore throat. cp Historical: - Allergies: 09:17 No Known Allergies; jl7 - Home Meds: 09:17 Lisinopril Oral [Active]; amlodipine oral [Active]; jl7 - PMHx: 09:17 diabetes mellitus; Hypertensive disorder; ULCER; jl7 - Immunization history:: Client reports receiving the 2nd dose of the Covid vaccine. - Social history:: Smoking status: Patient reports the use of cigarette tobacco products. ROS: 09:35 Constitutional: Negative for fever. cp 09:35 ENT: Positive for sore throat. cp 09:35 Respiratory: Positive for cough. 09:35 Abdomen/GI: Negative for abdominal pain, vomiting, diarrhea, constipation. Exam: 09:40 Constitutional: The patient appears in no acute distress, alert, awake, cp non-diaphoretic, non-toxic, well developed, well nourished. 09:40 Head/Face: Normocephalic, atraumatic. Eyes: Pupils equal round and reactive to light, cp extra-ocular motions intact. Lids and lashes normal. Conjunctiva and sclera are non-icteric and not injected. Cornea within normal limits. Periorbital areas with no swelling, redness, or edema. ENT: Nares patent. No nasal discharge, no septal abnormalities noted. Tympanic membranes are normal and external auditory canals are clear. Oropharynx with no redness, swelling, or masses, exudates, or evidence of obstruction, uvula midline. Mucous membranes moist. Chest/axilla: Normal chest wall appearance and motion. Nontender with no deformity. No lesions are appreciated. Cardiovascular: Regular rate and rhythm with a normal S1 and S2. No gallops, murmurs, or rubs. Normal PMI, no JVD. No pulse deficits. Respiratory: Lungs have equal breath sounds bilaterally, clear to auscultation and percussion. No rales, rhonchi or wheezes noted. No increased work of breathing, no retractions or nasal flaring. Abdomen/GI: Soft, non-tender, with normal bowel sounds. No distension or tympany. No guarding or rebound. No evidence of tenderness throughout. Back: No spinal tenderness. No costovertebral tenderness. Full range of motion. Skin: Warm, dry with normal turgor. Normal color with no rashes, no lesions, and no evidence of cellulitis. Vital Signs: 09:15 BP 137 / 66; Pulse 90; Resp 17; Temp 99.3; Pulse Ox 94% ; Weight 104.33 kg; Height 5 jl7 ft. 10 in. (177.80 cm); Pain 10/10; 11:00 BP 140 / 79; Pulse 89; Resp 18; Pulse Ox 98% on R/A; kr3 12:00 BP 135 / 76; Pulse 88; Resp 18; Pulse Ox 99% on R/A; kr3 13:03 BP 131 / 73; Pulse 85; Resp 18; Temp 100(O); Pulse Ox 99% on R/A; kr3 09:15 Body Mass Index 33.00 (104.33 kg, 177.80 cm) [facility] MDM: 09:31 Patient medically screened. 12:20 Data reviewed: vital signs, nurses notes, lab test result(s), radiologic studies, plain cp films. 12/25 09:20 Order name: COVID-19 SARS RT PCR (Document "Date of Onset" if Symptomatic); Complete [facility] Time: 11:54 12/25 11:55 Interpretation: Reviewed. 12/25 09:20 Order name: Flu; Complete Time: 11:54 [facility] 12/25 11:55 Interpretation: FLUA FLU A ----- POSITIVE for FLU A protein antigen; Reviewed. 12/25 09:20 Order name: Strep; Complete Time: 11:54 [facility] 12/25 09:50 Order name: XRAY Chest Pa And Lat (2 Views); Complete Time: 11:54 12/25 10:05 Order name: Throat Culture EDMS Administered Medications: 10:38 Drug: Tamiflu (oseltamivir) 75 mg Route: PO; kr3 13:08 Follow up: Response: No adverse reaction kr3 10:53 Drug: Tessalon Perle (benzonatate) 200 mg Route: PO; kr3 13:09 Follow up: Response: No adverse reaction kr3 Disposition Summary: 12/25/21 12:21 Discharge Ordered Location: Home cp Problem: new cp Symptoms: have improved cp Condition: Stable cp Diagnosis - Influenza due to identified novel influenza A virus with other respiratory cp manifestations Followup: cp - With: Private Physician - When: 1 - 2 days - Reason: Worsening of condition Discharge Instructions: - Discharge Summary Sheet cp - Influenza, Adult cp Forms: - Medication Reconciliation Form cp - Thank You Letter cp - Antibiotic Education cp - Prescription Opioid Use cp Prescriptions: - Ibuprofen 800 mg Oral Tablet - take 1 tablet by ORAL route every 8 hours As needed take with food; 30 tablet; cp Refills: 0, Product Selection Permitted - Tamiflu 75 mg Oral Capsule - take 1 capsule by ORAL route every 12 hours for 5 days; 10 capsule; Refills: 0, cp Product Selection Permitted - Bromfed DM 2-30-10 mg/5 mL Oral syrup - take 10 milliliter by ORAL route every 6 hours; 180 milliliter; Refills: 0, cp Product Selection Permitted Signatures: Dispatcher [employer] EDDu Ivory PA PA cp Leal, Jahala, RN RN jl7 Komal Hernandez RN RN kr3
[2021-12-25 13:18] VITALS: O2SAT 99
[2021-12-25 13:19] VITALS: BP 131/73; TEMP 100
== END 2021-12-25 13:06 | disposition home or self-care (01) ==
LOC: ER 08:54
DX: J10.1 Influenza due to other identified influenza virus with other respiratory manifestations (principal); Z20.822 Contact with and (suspected) exposure to COVID-19; E11.9 Type 2 diabetes mellitus without complications; I10 Essential (primary) hypertension; Z72.0 Tobacco use
CPT/HCPCS: 87070; 87081; 87804 ×2; 71046; 99284; U0003

== ENCOUNTER → 2023-04-24 | Emergency (ER) | payer OTHER ==
--- OUTSIDE RECORDS SUMMARY | 2023-04-24 10:09 | XMS REPORT | Continuity of Care Document ---
Author Name Unknown Address [address] [facility] [place] [address] [facility] Address [address] [facility] [address] [place] [address] Care Team Providers Care Processing Operator Name Role Phone Unavailable Unavailable Unavailable Payers Payer Name Policy Type Policy Number Effective Date Expirati on Date Source [employer] (MEDICARE REPLACEMENT HMO) [id number] 2021 00:00:00 Encounters Start Date/Time End Date/Time Encounter Type Admission Type Attending [facility] Facility Care Department Encounter ID Source 2021-09-24 08:04:00 2021-09-24 08:04:00 Outpatient [facility] DM [id number] [facility] 2021-04-13 12:01:00 2021-04-13 12:01:00 Outpatient [id number] [facility]
--- NOTE | 2023-04-24 11:02 | ER ---
Nurse's Notes [facility] Name: Jose Xie Age: 68 yrs Sex: Male : 1955 Arrival Date: 04/24/2023 Time: 10:06 Bed IW4 Private MD: Diagnosis: Rectal bleeding Presentation: 04/24 10:17 Chief complaint: Patient states: "Im bleeding in the inside". Rectal bleeding for 2-3 nj1 weeks, weakness, fatigued. Does not take blood thinners. Coronavirus screen: Vaccine status: Patient reports receiving the 2nd dose of the covid vaccine. Ebola Screen: Patient denies travel to an Ebola-affected area in the 21 days before illness onset. Initial Sepsis Screen: Does the patient meet any 2 criteria? No. Patient's initial sepsis screen is negative. Does the patient have a suspected source of infection? No. Patient's initial sepsis screen is negative. Risk Assessment: Do you want to hurt yourself or someone else? Patient reports no desire to harm self or others. Onset of symptoms was March 2023. 10:17 Method Of Arrival: Ambulatory nj1 10:17 Acuity: CY 3 nj1 Historical: - Allergies: 10:21 INFLUENZA VIRUS VACCINES; nj1 - PMHx: 10:21 diabetes mellitus; Hypertensive disorder; ULCER; nj1 - Immunization history:: Client reports receiving the 2nd dose of the Covid vaccine. - Social history:: Smoking status: Patient denies any tobacco usage or history of. Vital Signs: 10:17 BP 161 / 79; Pulse 77; Resp 18; Temp 97.5(O); Pulse Ox 97% on R/A; Weight 102.51 kg; nj1 Height 5 ft. 9 in. ; 10:17 Body Mass Index 33.37 (102.51 kg, 175.26 cm) nj1 ED Course: 10:11 Patient arrived in ED. im 10:21 Triage completed. nj1 10:22 Janette Duncan PA-C is PHCP. sb4 10:22 Ron Howard MD is Attending Physician. sb4 10:22 Arm band placed on right wrist. nj1 10:58 No provider procedures requiring assistance completed. Patient did not have IV access aa5 during this emergency room visit. Administered Medications: No medications were administered Outcome: 10:58 Condition: Pt was being transported by field tech via wheelchair, into ER for lab aa5 collection, notified field tech to place pt in Room 20, pt got up from wheelchair and stated "[facility] am leaving[facility]", tried to talk to patient about Room 20 being available for him now and pt only states "I am sure I don't want to stay [facility] am [facility]", DATABASE ENGINEER was notified. 11:01 Discharge ordered by . new 11:01 Patient left the ED. aa5 Signatures: Addie Wright, RN RN aa5 Janette Duncan, PA-C PA-C sb4 Norma Roy, RN RN nj1 Jackie Rodríguez Corrections: (The following items were deleted from the chart) 10:22 10:21 Allergies: No Known Allergies; nj1 nj1 11:08 11:07 Patient left the ED. aa5 aa5
--- NOTE | 2023-04-24 11:02 | EDPHYS ---
Physician Documentation [facility] Name: Jose Xie Age: 68 yrs Sex: Male : 1955 Arrival Date: 04/24/2023 Time: 10:06 Bed IW4 Private MD: ED Physician Ron Howard HPI: 04/24 10:49 This 68 yrs old Male presents to ER via Ambulatory with complaints of rectal sb4 bleeding. 10:49 The patient presents to the emergency department with bleeding from the rectum/anus, sb4 that is moderate. Onset: The symptoms/episode began/occurred 2 week(s) ago. Context: the patient has no known special context relating to the rectal area complaint(s). Associate signs and symptoms: Pertinent positives: abdominal pain in the abdomen diffusely, lower GI bleeding, bright red. The patient has not experienced similar symptoms in the past. The patient has not recently seen a physician. Historical: - Allergies: 10:21 INFLUENZA VIRUS VACCINES; nj1 - PMHx: 10:21 diabetes mellitus; Hypertensive disorder; ULCER; nj1 - Immunization history:: Client reports receiving the 2nd dose of the Covid vaccine. - Social history:: Smoking status: Patient denies any tobacco usage or history of. ROS: 10:49 Cardiovascular: Negative for chest pain, palpitations, and edema, sb4 10:49 Constitutional: Positive for fatigue, 10:49 Abdomen/GI: Positive for abdominal pain, nausea, constipation, rectal bleeding, 10:49 All other systems are negative, Exam: 10:49 Constitutional: This is a well developed, well nourished patient who is awake, alert, sb4 and in no acute distress. Head/Face: Normocephalic, atraumatic. Eyes: Extra-ocular motions intact. Periorbital areas with no swelling, redness, or edema. Cardiovascular: Regular rate and rhythm with a normal S1 and S2. Respiratory: Lungs have equal breath sounds bilaterally, clear to auscultation and percussion. No rales, rhonchi or wheezes noted. No increased work of breathing, no retractions or nasal flaring. Skin: Warm, dry with normal turgor. Normal color with no rashes, no lesions, and no evidence of cellulitis. MS/ Extremity: Pulses equal, no cyanosis. Neurovascular intact. Full, normal range of motion. Neuro: Awake and alert, GCS 15, oriented to person, place, time, and situation. Motor strength 5/5 in all extremities. Sensory grossly intact. 10:49 Abdomen/GI: Inspection: abdomen appears normal, Bowel sounds: normal, Palpation: soft, moderate abdominal tenderness, in the right upper quadrant and left upper quadrant, Vital Signs: 10:17 BP 161 / 79; Pulse 77; Resp 18; Temp 97.5(O); Pulse Ox 97% on R/A; Weight 102.51 kg; nj1 Height 5 ft. 9 in. ; 10:17 Body Mass Index 33.37 (102.51 kg, 175.26 cm) nj1 MDM: 10:24 Patient medically screened. sb4 10:49 Differential diagnosis: hemorrhoids, GI bleed, diverticulitis. sb4 10:59 Data reviewed: vital signs, nurses notes, and as a result, I will discharge patient. sb4 Test considered but Not performed: Labs: patient left prior to obtaining. CT: patient left prior to obtaining. Care significantly affected by the following chronic conditions: Diabetes, Hypertension. Refusal of service: The patient/guardian displays adequate decision making capability and despite a detailed discussion of alternatives, benefits, risks, and consequences refuses: CT Scan, all lab tests. ED course: [facility] but prior to labs/imaging obtained. 04/24 10:31 Order name: IV Saline Lock sb4 04/24 10:31 Order name: Labs collected and sent sb4 Administered Medications: No medications were administered Disposition Summary: 04/24/23 11:01 Discharge Ordered Notes: Location: Home sb4 Problem: an ongoing problem sb4 Symptoms: are unchanged sb4 Condition: Undetermined sb4 Diagnosis - Rectal bleeding sb4 Followup: sb4 - With: Emergency Department - When: As needed - Reason: Trouble breathing, Worsening of condition Forms: - Medication Reconciliation Form sb4 - Thank You Letter sb4 - Antibiotic Education sb4 - Prescription Opioid Use sb4 - Patient Portal Instructions sb4 - Leadership Thank You Letter sb4 Signatures: Dispatcher [employer] EDJanette Uriarte PA-C PA-C sb4 Norma Roy RN RN nj1 Corrections: (The following items were deleted from the chart) 10:22 10:21 Allergies: No Known Allergies; nj1 nj1
[2023-04-24 11:29] VITALS: BP 161/79; TEMP 97.5; O2SAT 97
== END ==
LOC: ER 10:06
DX: K62.5 Hemorrhage of anus and rectum (principal); R53.83 Other fatigue; E11.9 Type 2 diabetes mellitus without complications; I10 Essential (primary) hypertension; Z88.7 Allergy status to serum and vaccine

== ENCOUNTER → 2023-05-27 | Emergency (ER) | payer OTHER ==
--- OUTSIDE RECORDS SUMMARY | 2023-05-27 07:56 | XMS REPORT | Continuity of Care Document ---
Author Name Unknown Address [address] [facility] [place] [address] [facility] thconnect Address [address] [facility] [address] [place] [address] Care Team Providers Care Ultrasonographer Name Role Phone Unavailable Unavailable Unavailable Payers Payer Name Policy Type Policy Number Effective Date Expirati on Date Source [employer] (MEDICARE REPLACEMENT HMO) [id number] 2021 00:00:00 Encounters Start Date/Time End Date/Time Encounter Type Admission Type Attending [facility] Facility Care Department Encounter ID Source 2021-09-24 08:04:00 2021-09-24 08:04:00 Outpatient [facility] [id number] [facility] 2021-04-13 12:01:00 2021-04-13 12:01:00 Outpatient [facility] [id number] [facility]
--- NOTE | 2023-05-27 08:54 | RAD REPORT ---
EXAM DESCRIPTION: RAD - Shoulder Left 2 View - 05/27/2023 8:40 am CLINICAL HISTORY: PAIN COMPARISON: No comparisons FINDINGS: No acute fracture or dislocation is evident. Small calcifications distal supraspinatus ten don compatible with calcific tendinitis. 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
--- NOTE | 2023-05-27 09:27 | ER ---
Nurse's Notes [facility] Name: Jose Xie Age: 68 yrs Sex: Male : 1955 Arrival Date: 05/27/2023 Time: 07:53 Bed 18 Private MD: Diagnosis: Contusion of left shoulder;Calcific tendinitis of left shoulder Presentation: 05/26 08:10 Chief complaint: Left shoulder pain after mechanical fall from standing 3 days ago. hb Coronavirus screen: At this time, the client does not indicate any symptoms associated with coronavirus-19. Ebola Screen: No symptoms or risks identified at this time. Initial Sepsis Screen: Does the patient meet any 2 criteria? No. Patient's initial sepsis screen is negative. Does the patient have a suspected source of infection? No. Patient's initial sepsis screen is negative. Risk Assessment: Do you want to hurt yourself or someone else? Patient reports no desire to harm self or others. Onset of symptoms was May 24, 2023. 08:10 Method Of Arrival: Ambulatory hb 08:10 Acuity: CY 4 hb Triage Assessment: 08:12 General: Appears in no apparent distress. Behavior is calm, cooperative. Pain: Pain hb currently is 8 out of 10 on a pain scale. at worst was 10 out of 10 on a pain scale. Neuro: Level of Consciousness is awake, alert, obeys commands, Oriented to person, place, time, situation. Cardiovascular: Patient's skin is warm and dry. Respiratory: Respiratory effort is even, unlabored, Respiratory pattern is regular, symmetrical. Musculoskeletal: Reports left shoulder pain. Historical: - Allergies: 08:12 Influenza Virus Vaccines; hb - Home Meds: 08:12 amlodipine oral [Active]; lisinopril Oral [Active]; hb - PMHx: 08:12 diabetes mellitus; Hypertensive disorder; ULCER; hb - PSHx: 08:12 Back; Wrist - Right; Knee - Left; Foot - Left; hb - Immunization history:: Adult Immunizations up to date. - Social history:: Smoking status: Patient denies any tobacco usage or history of. Screenin:05 [facility] ED Fall Risk Assessment (Adult) History of falling in the last 3 months, rs5 including since admission Yes- single mechanical fall (1 pt) Confusion or Disorientation No (0 pts) Intoxicated or Sedated No (0 pts) Impaired Gait Yes (1 pt) Mobility Assist Device Used Yes (1 pt) Altered Elimination No (0 pt) Score/Fall Risk Level 0 - 2 = Low Risk Oriented to surroundings, Maintained a safe environment. Abuse screen: Denies threats or abuse. Nutritional screening: No deficits noted. Tuberculosis screening: No symptoms or risk factors identified. Assessment: 08:05 General: Appears in no apparent distress. ill, Behavior is cooperative. rs5 08:05 Pain: Pain: Complains of pain in left arm Pain does not radiate. Pain currently is 3 rs5 out of 10 on a pain scale. Quality of pain is described as crampy, Is continuous. Neuro: Level of Consciousness is awake, alert, obeys commands, Oriented to person, place, time, situation. Cardiovascular: Rhythm is regular. Respiratory: Airway is patent Respiratory effort is even, unlabored, Respiratory pattern is regular, symmetrical. 08:05 GI: Abdomen is round non-distended, Abd is soft and non tender X 4 quads. : No signs rs5 and/or symptoms were reported regarding the genitourinary system. EENT: No signs and/or symptoms were reported regarding the EENT system. Derm: Skin is intact, Skin is pink, warm \T\ dry. Musculoskeletal: Circulation, motion, and sensation intact. Range of motion: limited in left shoulder. 09:10 Reassessment: Patient and/or family updated on plan of care and expected duration. Pain rs5 level reassessed. Patient is alert, oriented x 3, equal unlabored respirations, skin warm/dry/pink. Patient denies pain at this time. Patient states feeling better. Patient states symptoms have improved. Vital Signs: 08:10 BP 162 / 76; Pulse 80; Resp 16; Temp 97.8(TE); Pulse Ox 97% on R/A; Weight 103.87 kg; rs5 Height 5 ft. 10 in. ; Pain 3/10; 09:02 BP 160 / 81; Pulse 77; Resp 18; Pulse Ox 99% on R/A; rs5 08:10 Body Mass Index 32.86 (103.87 kg, 177.8 cm) rs5 08:10 Pain Scale: Adult rs5 ED Course: 07:56 Patient arrived in ED. mg5 08:05 Patient has correct armband on for positive identification. Placed in gown. Bed in low rs5 position. Call light in reach. Side rails up X2. 08:05 No provider procedures requiring assistance completed. rs5 08:08 Cathleen Dixon MD is Attending Physician. cp3 08:12 Triage completed. hb 08:12 Arm band placed on. hb 08:14 Client placed on continuous cardiac and pulse oximetry monitoring. NIBP monitoring hb applied. Pulse ox on. NIBP on. 08:34 Anderson Pena, RN is Primary Nurse. rs5 08:42 Shoulder Left (2 View) XRAY In Process Unspecified. EDMS 09:26 Cameron Kay MD is Referral Physician. cp3 09:30 IV discontinued, intact, bleeding controlled, No redness/swelling at site. Pressure rs5 dressing applied. Administered Medications: No medications were administered Medication: 08:10 VIS not applicable for this client. rs5 Outcome: 09:26 Discharge ordered by MD. cp3 09:30 Discharged to home via wheelchair, with family, rs5 09:30 Condition: stable rs5 09:30 Discharge instructions given to patient, family, Instructed on discharge instructions, follow up and referral plans. medication usage, Demonstrated understanding of instructions, follow-up care, medications, Prescriptions given X 2, 09:35 Patient left the ED. rs5 Signatures: Dispatcher [employer] [facility] Cathleen Dixon MD MD cp3 Makenna Raymundo RN RN Anderson Pena RN RN rs5 Ilda Zeng mg5 Corrections: (The following items were deleted from the chart) 19:10 08:05 General: Appears in no apparent distress. ill, Behavior is cooperative, rs5 rs5 19:11 08:05 Pain: Complains of pain in left arm Pain does not radiate. Pain currently is 7 rs5 out of 10 on a pain scale. Quality of pain is described as crampy, Is continuous, Pain: Complains of pain in left arm Pain does not radiate. Pain currently is 7 out of 10 on a pain scale. Quality of pain is described as crampy, Is continuous, rs5 19:12 08:10 BP 162 / 76; Pulse 80bpm; Resp 16bpm; Pulse Ox 97% RA; Temp 97.8F Temporal; rs5 103.87 kg; Height 5 ft. 10 in.; BMI: 32.8; Pain 8/10, Adult; hb
--- NOTE | 2023-05-27 09:27 | EDPHYS ---
Physician Documentation [facility] Name: Jose Xie Age: 68 yrs Sex: Male : 1955 Arrival Date: 05/27/2023 Time: 07:53 Bed 18 Private MD: ED Physician Cathlene Dixon HPI: 05/26 08:32 This 68 yrs old Male presents to ER via Ambulatory with complaints of Fall cp3 Injury, Arm Injury. 08:32 the patient is a 68 year old male who presents to the ed secondary to left shoulder cp3 pain and discomfort sp fall 3 days ago. patient can move shoulder with pain and discomfort. Historical: - Allergies: 08:12 Influenza Virus Vaccines; hb - Home Meds: 08:12 amlodipine oral [Active]; lisinopril Oral [Active]; hb - PMHx: 08:12 diabetes mellitus; Hypertensive disorder; ULCER; hb - PSHx: 08:12 Back; Wrist - Right; Knee - Left; Foot - Left; hb - Immunization history:: Adult Immunizations up to date. - Social history:: Smoking status: Patient denies any tobacco usage or history of. ROS: 08:32 Constitutional: Negative for fever, chills, and weight loss, Neck: Negative for injury, cp3 pain, and swelling, Respiratory: Negative for shortness of breath, cough, wheezing, and pleuritic chest pain, Back: Negative for injury and pain, : Negative for injury, bleeding, discharge, and swelling, Skin: Negative for injury, rash, and discoloration, Neuro: Negative for headache, weakness, numbness, tingling, and seizure, 08:32 MS/extremity: Positive for pain, tenderness, Exam: 08:32 Constitutional: This is a well developed, well nourished patient who is awake, alert, cp3 and in no acute distress. Head/Face: Normocephalic, atraumatic. Chest/axilla: Normal chest wall appearance and motion. Nontender with no deformity. No lesions are appreciated. Cardiovascular: Regular rate and rhythm with a normal S1 and S2. No gallops, murmurs, or rubs. Normal PMI, no JVD. No pulse deficits. Respiratory: Lungs have equal breath sounds bilaterally, clear to auscultation and percussion. No rales, rhonchi or wheezes noted. No increased work of breathing, no retractions or nasal flaring. Skin: Warm, dry with normal turgor. Normal color with no rashes, no lesions, and no evidence of cellulitis. Neuro: Awake and alert, GCS 15, oriented to person, place, time, and situation. Cranial nerves II-XII grossly intact. Motor strength 5/5 in all extremities. Sensory grossly intact. Cerebellar exam normal. Normal gait. Psych: Awake, alert, with orientation to person, place and time. Behavior, mood, and affect are within normal limits. 08:32 Musculoskeletal/extremity: patient with tenderness across the left shoulder muscles and lateral clavicle. axillary nerve intact, pain can range 45 degrees. Vital Signs: 08:10 BP 162 / 76; Pulse 80; Resp 16; Temp 97.8(TE); Pulse Ox 97% on R/A; Weight 103.87 kg; rs5 Height 5 ft. 10 in. ; Pain 3/10; 09:02 BP 160 / 81; Pulse 77; Resp 18; Pulse Ox 99% on R/A; rs5 08:10 Body Mass Index 32.86 (103.87 kg, 177.8 cm) rs5 08:10 Pain Scale: Adult rs5 MDM: 08:08 Patient medically screened. cp3 09:30 Differential diagnosis: contusion, fracture, sprain, strain. Data reviewed: vital cp3 signs, nurses notes, radiologic studies, plain films. Consideration of Admission/Observation Escalation of care including admission/observation considered. I considered the following discharge prescriptions or medication management in the emergency department Medications were administered in the Emergency Department. See MAR. ED course: left shoulder x-ray interpreted by me: No acute fracture. 05/26 08:11 Order name: Shoulder Left (2 View) XRAY; Complete Time: 09:25 cp3 Administered Medications: No medications were administered Disposition Summary: 05/27/23 09:26 Discharge Ordered Notes: Location: Home cp3 Condition: Stable cp3 Diagnosis - Contusion of left shoulder cp3 - Calcific tendinitis of left shoulder cp3 Followup: cp3 - With: Cameron Kay MD - When: 1 week - Reason: Continuance of care Discharge Instructions: - Discharge Summary Sheet cp3 - Calcific Tendinitis cp3 Forms: - Medication Reconciliation Form cp3 - Thank You Letter cp3 - Antibiotic Education cp3 - Prescription Opioid Use cp3 - Patient Portal Instructions cp3 - Leadership Thank You Letter cp3 Prescriptions: - TYELNOLE #3 - take 1 tablet ORAL route 3 times per day As needed; 12 tablet; Refills: 0, cp3 Product Selection Permitted - Zanaflex 4 mg Oral Tablet - take 1 tablet ORAL route every 8 hours As needed; 20 tablet; Refills: 0, cp3 Product Selection Permitted Signatures: Dispatcher [employer] Cathleen Vaca MD MD cp3 Makenna Raymundo, RN RN hb
[2023-05-27 09:41] VITALS: BP 162/76; TEMP 97.8; O2SAT 97
== END ==
LOC: ER 07:53
DX: M75.32 Calcific tendinitis of left shoulder (principal); Z88.7 Allergy status to serum and vaccine
CPT/HCPCS: 99283

== ENCOUNTER 2023-11-10 20:01 | Emergency (ER) | payer OTHER ==
--- OUTSIDE RECORDS SUMMARY | 2023-11-10 20:12 | XMS REPORT | Continuity of Care Document ---
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
[2023-11-10 21:11] LABS: Sqamous Epithelial None Seen /HPF (None Seen); Urine Bacteria None Seen /HPF (<20); Urine Bilirubin NEGATIVE (Negative); Urine Blood 2+ (Negative); Urine Clarity Clear (Clear); Urine Color Light-Yellow (Yellow); Urine Culture Reflex Order REFLEXED; Urine Glucose 4+ (Over) (Negative); Urine Ketones NEGATIVE (Negative); Urine Micro Reflex YN NO BILL MICROSCOPIC; Urine Nitrite NEGATIVE (Negative); Urine Protein TRACE (Negative); Urine RBC 21-50 /HPF (None Seen); Urine Urobilinogen Normal (Normal); Urine pH 5.5 (5.0-7.0)
[2023-11-10 21:20] LABS: SARS-CoV-2 Antigen CONTROL BLUE LINE VIS/BG OK
[2023-11-10 21:22] LABS: SARS-CoV-2 Antigen Rapid Res Positive (Negative)
--- NOTE | 2023-11-10 21:50 | RAD REPORT ---
EXAM DESCRIPTION: RAD - Chest Single View - 11/10/2023 9:39 pm CLINICAL HISTORY: CHEST PAIN Chest pain. COMPARISON: <Comparisons> FINDINGS: Portable technique limits examination quality. Mild bilateral interstitial lung opacities could indicate viral infection. Increased opacification of the right lung base could be a superimposed pneumonia. The heart is normal in size. No displaced fra ctures.
[2023-11-10] MEDS ORDERED: NA CHLORIDE 0.9% 1,000 ML ONE (22:44)
[2023-11-10] MEDS ORDERED: ONDANSETRON 4 MG/2 ML VIAL ONE (22:45)
[2023-11-10] MEDS ORDERED: HYDROCODONE/APAP 10/325 TAB ONE (22:45)
[2023-11-10] MEDS ORDERED: MORPHINE 4 MG/ML SYR ONE (23:28)
[2023-11-11] MEDS ORDERED: GUAIFENESIN/DM 5 ML UCUP ONE (00:30)
--- NOTE | 2023-11-11 01:02 | EDPHYS ---
Physician Documentation [facility] Name: Jose Xie Age: 68 yrs Sex: Male : 1955 Arrival Date: 11/10/2023 Time: 20:01 Bed 19 Private MD: ED Physician Samm Cabrera HPI: 11/09 20:08 This 68 yrs old Male presents to ER via Unassigned with complaints of Flu sp4 Symptoms, Pain All Over, Fever, Chest Congestion. 11/10 01:06 68-year-old male with past medical history diabetes hypertension and ulcers presents sp4 with 3 days of diffuse body aches, fever, chills, diarrhea, cough.. Most importantly patient is here for body aches. Historical: - Allergies: 11/09 20:40 Influenza Virus Vaccines; tm6 - PMHx: 20:40 diabetes mellitus; Hypertensive disorder; ULCER; tm6 - PSHx: 20:40 back; Foot - Left; Knee - Left; Wrist - Right; tm6 - Immunization history:: Client reports receiving the 2nd dose of the Covid vaccine. - Infectious Disease History:: Denies. - Social history:: Smoking status: Patient reports the use of cigarette tobacco products, denies chronic smoking, but will smoke occasionally, Patient uses alcohol, occasionally. - Family history:: not pertinent. ROS: 11/10 01:10 Constitutional: Fever, positive generalized pain, positive body aches, positive sp4 congestion, positive diarrhea, and positive cough All other systems are negative, Exam: 01:10 Constitutional: This is a well developed, well nourished patient who is awake, alert, sp4 and in no acute distress. Head/Face: Normocephalic, atraumatic. Eyes: Pupils equal round and reactive to light, extra-ocular motions intact. Lids and lashes normal. Conjunctiva and sclera are not injected. Cornea within normal limits. Periorbital areas with no swelling, redness, or edema. ENT: Nares patent. No nasal discharge, no septal abnormalities noted. Tympanic membranes are normal and external auditory canals are clear. Oropharynx with no redness, swelling, or masses, exudates, or evidence of obstruction, uvula midline. Mucous membranes moist. Neck: Trachea midline, no thyromegaly or masses palpated, and no cervical lymphadenopathy. Supple, full range of motion without nuchal rigidity, or vertebral point tenderness. Chest/axilla: Normal chest wall appearance and motion. Nontender with no deformity. No lesions are appreciated. Cardiovascular: Regular rate and rhythm with a normal S1 and S2. No gallops, murmurs, or rubs. Normal PMI, no JVD. No pulse deficits. Respiratory: Lungs have equal breath sounds bilaterally, clear to auscultation and percussion. No rales, rhonchi or wheezes noted. No increased work of breathing, no retractions or nasal flaring. Abdomen/GI: Soft, with normal bowel sounds. No distension or tympany. No guarding or rebound. No evidence of tenderness throughout. Back: No spinal tenderness. No costovertebral tenderness. Skin: Warm, dry with normal turgor. Normal color with no rashes, no lesions, and no evidence of cellulitis. MS/ Extremity: Pulses equal, no cyanosis. Neurovascular intact. Full, normal range of motion. Neuro: Awake and alert, GCS 15, oriented to person, place, time, and situation. Cranial nerves II-XII grossly intact. Motor strength 5/5 in all extremities. Sensory grossly intact. Psych: Awake, alert, with orientation to person, place and time. Behavior, mood, and affect are within normal limits 01:10 ECG was reviewed by the Attending Physician. EKG at 2246 normal sinus rhythm, no ST elevation or depression, normal EKG. Vital Signs: 11/09 20:38 Temp 98.9(O); tm6 20:38 BP 178 / 76; Pulse 83; Resp 19; Pulse Ox 94% on R/A; Weight 104.33 kg; Height 5 ft. 10 tm6 in. ; Pain 9/10; 20:42 BP 176 / 76; tm6 21:00 BP 166 / 76; Pulse 98; Resp 19; Temp 99; Pulse Ox 97% on R/A; Pain 8/10; cp4 11/10 00:00 BP 157 / 77; Pulse 89; Resp 18; Temp 98.8(O); Pulse Ox 97% on R/A; Pain 0/10; rg5 11/09 20:38 Body Mass Index 33.00 (104.33 kg, 177.8 cm) tm6 20:38 Pain Scale: Adult tm6 21:00 Pain Scale: Adult cp4 11/10 00:00 Pain Scale: Adult rg5 [place] Coma Score: 11/09 21:00 Eye Response: spontaneous(4). Motor Response: obeys commands(6). Verbal Response: cp4 oriented(5). Total: 15. 11/10 01:10 Eye Response: spontaneous(4). Motor Response: obeys commands(6). Verbal Response: sp4 oriented(5). Total: 15. MDM: 11/09 20:17 Patient medically screened. sp4 11/10 01:12 Differential diagnosis: viral Infection, bacterial infection, URI, bronchitis, sp4 pneumonia. Data reviewed: vital signs, nurses notes, radiologic studies, plain films. ED course: EXAM DESCRIPTION: RAD - Chest Single View - 11/10/2023 9:39 pm CLINICAL HISTORY: CHEST PAIN Chest pain. COMPARISON: FINDINGS: Portable technique limits examination quality. Mild bilateral interstitial lung opacities could indicate viral infection. Increased opacification of the right lung base could be a superimposed pneumonia. The heart is normal in size. No displaced fractures. . 01:14 Consideration of Admission/Observation Escalation of care including sp4 admission/observation considered. ED course: Lab work had to be recollected after which time patient has refused the blood work. 11/09 20:18 Order name: SARS RAPID; Complete Time: 21:57 sp4 11/09 20:39 Order name: Influenza Screen (a \T\ B); Complete Time: 21:57 sp4 11/09 20:39 Order name: Urinalysis W/Microscopic; Complete Time: 21:57 4 11/09 21:15 Order name: Urine Culture EDVA 11/09 20:38 Order name: XRAY Chest (1 view); Complete Time: 21:57 sp4 11/09 20:38 Order name: EKG; Complete Time: 20:38 sp4 11/09 20:38 Order name: Cardiac monitoring; Complete Time: 23:18 sp4 11/09 20:38 Order name: EKG - Nurse/Tech; Complete Time: 23:18 sp4 11/09 20:38 Order name: IV Saline Lock; Complete Time: 23:18 sp4 11/09 20:38 Order name: Labs collected and sent; Complete Time: 23:18 4 11/09 20:38 Order name: O2 Per Protocol; Complete Time: 23:18 sp4 11/09 20:38 Order name: O2 Sat Monitoring; Complete Time: 23:35 sp4 11/10 00:01 Order name: Misc. Order: RECOLLECT ALL LABS; Complete Time: 00:34 rv1 EC:10 Rate is 79 beats/min. Rhythm is regular, Normal Sinus Rhythm. QRS [place] is Normal. SC sp4 interval is normal. QRS interval is normal. QT interval is normal. No Q waves. T waves are Normal. No ST changes noted. Clinical impression: No evidence of ischemia. Interpreted by me. Reviewed by me. Administered Medications: 11/09 23:17 Drug: Ondansetron IVP 4 mg IVP once; over 2 minutes Route: IVP; Site: right forearm; [facility] 11/10 01:14 Follow up: Response: No adverse reaction [facility] 11/09 23:18 Drug: Joseph PO 10 mg-325 mg 1 tabs PO once Route: PO; 5 11/10 01:15 Follow up: Response: No adverse reaction; Pain is decreased [facility] 11/09 23:18 Drug: NS 0.9% IV 500 ml IV at bolus once Route: IV; Rate: bolus; Site: right forearm; 5 11/10 01:13 Follow up: Response: No adverse reaction; IV Status: Completed infusion; IV Intake: rg5 1000ml 11/09 23:28 Drug: morphine IM 4 mg IM once Route: IM; Site: right deltoid; 5 11/10 01:13 Follow up: Response: No adverse reaction; Pain is decreased 5 00:00 Drug: Dextromethorphan-Guaifenesin PO Liquid 10 mg-100 mg/5 mL 10 ml PO once Route: PO; rg5 01:14 Follow up: Response: No adverse reaction rg5 Disposition Summary: 11/11/23 01:02 Discharge Ordered Notes: Location: Home sp4 Problem: new sp4 Symptoms: have improved sp4 Condition: Stable sp4 Diagnosis - Acute COVID-19 illnes, Acute febrile illness, Body aches sp4 Followup: sp4 - With: Private Physician - When: 7 - 10 days - Reason: Recheck today's complaints Discharge Instructions: - Discharge Summary Sheet sp4 - COVID-19 sp4 Forms: - Prescription Opioid Use sp4 Prescriptions: - Paxlovid 300 mg (150 mg x 2)-100 mg Oral Tablet, Dose Pack - take 1 dose pack ORAL route as directed on dose pack for 5 days take TWO 150 mg sp4 tablets of nirmatrelvir with ONE 100 mg tablet of ritonavir twice daily for 5 days; 1 unit; Refills: 0, Product Selection Permitted - dextromethorphan-guaifenesin 60-1,200 mg Oral Tablet, Extended Release 12 hr - take 1 tablet ORAL route every 12 hours PRN cough; 40 tablet; Refills: 0, sp4 Product Selection Permitted - Ibuprofen 600 mg Oral Tablet - take 1 tablet ORAL route every 6 hours As needed take with food; 30 tablet; sp4 Refills: 0, Product Selection Permitted - Zithromax Z-Chris 250 mg Oral Tablet - take 1 tablet ORAL route as directed for 5 days Day 1 - take two (2) tablets sp4 one time. Day 2, 3, 4 , 5 take one (1) tablet once daily.; 6 tablet; Refills: 0, Product Selection Permitted Signatures: Dispatcher [employer] Angela Arevalo rv1 Samm Cabrera MD MD sp4 Anson Ray RN RN tm6 Shailesh Burns RN RN rg5
--- NOTE | 2023-11-11 01:02 | ER ---
Nurse's Notes [facility] Name: Jose Xie Age: 68 yrs Sex: Male : 1955 Arrival Date: 11/10/2023 Time: 20:01 Bed 19 Private MD: Diagnosis: Acute COVID-19 illnes, Acute febrile illness, Body aches Presentation: 11/09 20:38 Chief complaint: Patient states: diarrhea, fever, weak, body aches, starting 3 days tm6 ago. Coronavirus screen: Vaccine status: Patient reports receiving the 2nd dose of the covid vaccine. Ebola Screen: Patient negative for fever greater than or equal to 101.5 degrees Fahrenheit, and additional compatible Ebola Virus Disease symptoms Patient denies exposure to infectious person. Patient denies travel to an Ebola-affected area in the 21 days before illness onset. No symptoms or risks identified at this time. Initial Sepsis Screen: Does the patient meet any 2 criteria?. Initial Sepsis Screen: Does the patient meet any 2 criteria? No. Patient's initial sepsis screen is negative. Does the patient have a suspected source of infection? No. Patient's initial sepsis screen is negative. Risk Assessment: Do you want to hurt yourself or someone else? Patient reports no desire to harm self or others. Onset of symptoms was November 07, 2023. 20:38 Method Of Arrival: Ambulatory tm6 20:38 Acuity: CY 3 tm6 Triage Assessment: 20:41 General: Appears uncomfortable, Behavior is calm, cooperative. Pain: Complains of pain tm6 in general body aches Pain currently is 9 out of 10 on a pain scale. Quality of pain is described as aching, Pain began 2-3 days ago. EENT: No signs and/or symptoms were reported regarding the EENT system. Neuro: Level of Consciousness is awake, alert, obeys commands. Cardiovascular: Patient's skin is warm and dry. Respiratory: Airway is patent Respiratory effort is even, unlabored, Respiratory pattern is regular, symmetrical. GI: Abdomen is round Reports diarrhea, nausea. : No signs and/or symptoms were reported regarding the genitourinary system. Derm: No signs and/or symptoms reported regarding the dermatologic system. Musculoskeletal: Reports general body aches. Historical: - Allergies: 20:40 Influenza Virus Vaccines; tm6 - PMHx: 20:40 diabetes mellitus; Hypertensive disorder; ULCER; tm6 - PSHx: 20:40 back; Foot - Left; Knee - Left; Wrist - Right; tm6 - Immunization history:: Client reports receiving the 2nd dose of the Covid vaccine. - Infectious Disease History:: Denies. - Social history:: Smoking status: Patient reports the use of cigarette tobacco products, denies chronic smoking, but will smoke occasionally, Patient uses alcohol, occasionally. - Family history:: not pertinent. Screenin:00 [facility] ED Fall Risk Assessment (Adult) History of falling in the last 3 months, cp4 including since admission No falls in past 3 months (0 pts) Confusion or Disorientation No (0 pts) Intoxicated or Sedated No (0 pts) Impaired Gait No (0 pts) Mobility Assist Device Used No (0 pt) Altered Elimination No (0 pt) Score/Fall Risk Level 0 - 2 = Low Risk Oriented to surroundings, Maintained a safe environment, Hourly rounding (assess needs \T\ fall precautionary measures) done. Abuse screen: Denies threats or abuse. Nutritional screening: No deficits noted. Tuberculosis screening: No symptoms or risk factors identified. Assessment: 21:00 General: Appears uncomfortable, Behavior is calm, cooperative, appropriate for age. cp4 21:00 Pain: Complains of pain in all over the body Pain currently is 8 out of 10 on a pain cp4 scale. Quality of pain is described as aching. Neuro: Level of Consciousness is awake, alert, obeys commands, Oriented to person, place, time. Cardiovascular: Murmur present. Respiratory: Reports cough that is productive, Airway is patent Trachea midline Respiratory effort is even, unlabored, Respiratory pattern is regular, symmetrical. GI: Abdomen is round non-distended. : No signs and/or symptoms were reported regarding the genitourinary system. EENT: No deficits noted. Derm: Skin is intact, Skin is dry, Skin is normal, Skin temperature is warm. Musculoskeletal: Range of motion: intact in all extremities. Vital Signs: 20:38 Temp 98.9(O); tm6 20:38 BP 178 / 76; Pulse 83; Resp 19; Pulse Ox 94% on R/A; Weight 104.33 kg; Height 5 ft. 10 tm6 in. ; Pain 9/10; 20:42 BP 176 / 76; tm6 21:00 BP 166 / 76; Pulse 98; Resp 19; Temp 99; Pulse Ox 97% on R/A; Pain 8/10; cp4 11/10 00:00 BP 157 / 77; Pulse 89; Resp 18; Temp 98.8(O); Pulse Ox 97% on R/A; Pain 0/10; rg5 11/09 20:38 Body Mass Index 33.00 (104.33 kg, 177.8 cm) tm6 20:38 Pain Scale: Adult tm6 21:00 Pain Scale: Adult cp4 11/10 00:00 Pain Scale: Adult rg5 [place] Coma Score: 11/09 21:00 Eye Response: spontaneous(4). Motor Response: obeys commands(6). Verbal Response: cp4 oriented(5). Total: 15. 11/10 01:10 Eye Response: spontaneous(4). Motor Response: obeys commands(6). Verbal Response: sp4 oriented(5). Total: 15. ED Course: 11/09 20:07 Patient arrived in ED. gm2 20:08 Samm Cabrera MD is Attending Physician. sp4 20:40 Triage completed. tm6 20:40 Arm band placed on left wrist. tm6 20:49 Influenza Screen (a \T\ B) Sent. tm6 20:49 SARS RAPID Sent. tm6 21:00 Patient has correct armband on for positive identification. Bed in low position. Side cp4 rails up X 1. 21:00 No provider procedures requiring assistance completed. Inserted saline lock: 20 gauge cp4 in right forearm, using aseptic technique. Blood collected. Flushed with 10 mL NS. 21:41 XRAY Chest (1 view) In Process Unspecified. EDMS 21:58 Shailesh Burns, RN is Primary Nurse. rg5 11/10 01:12 IV discontinued. rg5 01:13 Provided Education on: POST ER CARE. rg5 Administered Medications: 11/09 23:17 Drug: Ondansetron IVP 4 mg IVP once; over 2 minutes Route: IVP; Site: right forearm; rg5 11/10 01:14 Follow up: Response: No adverse reaction rg5 11/09 23:18 Drug: [place] PO 10 mg-325 mg 1 tabs PO once Route: PO; rg5 11/10 01:15 Follow up: Response: No adverse reaction; Pain is decreased rg5 11/09 23:18 Drug: NS 0.9% IV 500 ml IV at bolus once Route: IV; Rate: bolus; Site: right forearm; rg5 11/10 01:13 Follow up: Response: No adverse reaction; IV Status: Completed infusion; IV Intake: rg5 1000ml 11/09 23:28 Drug: morphine IM 4 mg IM once Route: IM; Site: right deltoid; rg5 11/10 01:13 Follow up: Response: No adverse reaction; Pain is decreased rg5 00:00 Drug: Dextromethorphan-Guaifenesin PO Liquid 10 mg-100 mg/5 mL 10 ml PO once Route: PO; rg5 01:14 Follow up: Response: No adverse reaction rg5 Medication: 11/09 21:00 VIS not applicable for this client. cp4 Intake: 11/10 01:13 IV: 1000ml; Total: 1000ml. rg5 Outcome: 01:02 Discharge ordered by . sp4 01:12 Discharged to home ambulatory, rg5 01:12 Condition: stable 01:12 Discharge instructions given to patient, Instructed on discharge instructions, follow up and referral plans. Demonstrated understanding of instructions, follow-up care, medications, Prescriptions given X 4, 01:16 Patient left the ED. rg5 Signatures: Dispatcher [employer] Samm Easley MD MD sp4 Sole Plummer cp4 Madonna Alicia 2 Anson Ray RN RN 6 Shailesh Burns RN RN rg5
[2023-11-11 01:26] VITALS: O2SAT 97
[2023-11-11 01:28] VITALS: BP 157/77; TEMP 98.8
--- NOTE | 2023-11-11 13:58 | EKG ---
Test Date: 2023-11-10 Test Time: 22:46:07 Vector Control Assistant: ANGELA MEASUREMENT RESULTS: Intervals: Rate: 79 WY: 156 QRSD: 88 QT: 368 QTc: 421 [place]: P: 42 WY: 156 QRS: 31 T: 135 INTERPRETIVE STATEMENTS: Normal sinus rhythm ST & T wave abnormality, consider lateral ischemia Abnormal ECG Compared to ECG 08/07/2021 08:41:09 No significant changes Electronically Signed On 11-11-23 13:57:32 CDT by Corey Perez
== END 2023-11-11 01:16 | disposition home or self-care (01) ==
LOC: ER 20:01
DX: U07.1 COVID-19 (principal); R52 Pain, unspecified; F17.210 Nicotine dependence, cigarettes, uncomplicated
CPT/HCPCS: 96361; 93005; 87088; 81001; 87086; 36415; 87077; 87186; 87804 ×2; 71045; 96372; 96374; 99284; 87811; J2405; J7030